=== PATIENT | female | born 1950 | race African-American/Black ===

== ENCOUNTER 2016-08-18 21:41 | Emergency (ER) | payer MEDICARE, MEDICAID ==
[2015-10-04 12:36] VITALS: BMI 25.3
[~2016-08-18 21:41] MED LIST: COMBIGAN OPHT DR5 ML EACH EYE; HUMULIN R100 U/ML SC; LANTUS SOL100 UNIT/1 SC; NAPROSYN250 MG PO; NORCO 10/325 TA1 TA1 PO; NORVIR100 MG PO; PEGASYS SQ; PREZISTA; SOVALDI400 MG PO; STRIBILD TABLE1 EACH PO; TRAVATAN Z2.5 ML EACH EYE; TRUVADA 200 MG1 EACH PO; VYVANSE20 MG PO; ZESTRIL20 MG PO
[2016-08-18 23:34] LABS: BASOPHILS 0.2 % (0.0-2.0); EOSINOPHILS 0.3 % (0-7); HEMATOCRIT 36.6 % (36.0-48.0); HEMOGLOBIN 11.4 g/dL (12-16); IMMATURE GRANULOCYTES 0.3 % (0-5); LYMPHOCYTES 22.7 % (15-50); MCH 24.1 pg (26.0-34.0); MCHC 31.1 g/dL (31.0-37.0); MCV 77.4 fL (80.0-100.0); MEAN PLATELET VOLUME 11.1 fL (7.4-10.4); MONOCYTES 8.1 % (2-11); NEUTROPHILS 68.4 % (40-80); PLATELET COUNT 163 10x3/uL (130-400); RBC 4.73 10x6/uL (4.00-5.40); RDW 17.4 % (11.5-14.5); WBC 13.3 10x3/uL (4.8-10.8)
[2016-08-18 23:45] LABS: ALBUMIN 3.3 g/dL (3.4-5.0); ANION GAP 12.6 mmol/L (8-16); BILIRUBIN - TOTAL 1.1 mg/dL (0.2-1.3); CALCIUM 8.9 mg/dL (8.5-10.1); CARBON DIOXIDE 26.5 mmol/L (21.0-32.0); CREATININE - SERUM 0.9 mg/dL (0.6-1.3); POTASSIUM - SERUM 4.1 mmol/L (3.5-5.1); PROTEIN - SERUM 8.4 g/dL (6.4-8.2)
[2016-08-19 00:28] LABS: APPEARANCE CLOUDY (CLEAR); COLOR YELLOW (YELLOW); LEUKOCYTE ESTERASE 2+ (NEGATIVE); NITRITE NEGATIVE (NEGATIVE); PROTEIN TRACE mg/dL (NEGATIVE); SPECIFIC GRAVITY 1.015 (1.005-1.020)
[2016-08-19 00:29] LABS: BACTERIA MODERATE /hpf (NONE SEEN); BILIRUBIN NEGATIVE (NEGATIVE); GLUCOSE NEGATIVE (NEGATIVE); KETONE NEGATIVE (NEGATIVE); RED CELLS - URINE 0-5 /hpf (0-5); WHITE CELLS - URINE 25-50 /hpf (0-5)
== END 2016-08-19 01:48 | disposition home or self-care (01) ==
LOC: D.ER 21:41
PROVIDERS: Physician Assistant
DX: N39.0 Urinary tract infection, site not specified (principal); D64.9 Anemia, unspecified; B19.20 Unspecified viral hepatitis C without hepatic coma; B20 Human immunodeficiency virus [HIV] disease; E11.9 Type 2 diabetes mellitus without complications; D69.6 Thrombocytopenia, unspecified

== ENCOUNTER 2017-06-22 21:04 | Emergency (ER) | payer MEDICARE, MEDICAID ==
[2015-10-04 12:36] VITALS: BMI 25.3
[2017-06-22 21:51] LABS: BASOPHILS 0.2 % (0-2); EOSINOPHILS 0.3 % (0-7); HEMATOCRIT 31.2 % (36.0-48.0); HEMOGLOBIN 9.6 g/dL (12-16); IMMATURE GRANULOCYTES 0.1 % (0-5); LYMPHOCYTES 23.8 % (15-50); MCHC 30.8 g/dL (31.0-37.0); MEAN PLATELET VOLUME 10.1 fL (7.4-10.4); MONOCYTES 11.2 % (2-11); NEUTROPHILS 64.4 % (40-80); PLATELET COUNT 147 10x3/uL (130-400); RDW 18.9 % (11.5-14.5); WBC 9.7 10x3/uL (4.8-10.8)
[2017-06-22 21:58] LABS: APPEARANCE CLEAR (CLEAR); BILIRUBIN NEGATIVE (NEGATIVE); COLOR YELLOW (YELLOW); GLUCOSE NEGATIVE (NEGATIVE); KETONE NEGATIVE (NEGATIVE); NITRITE NEGATIVE (NEGATIVE); PROTEIN TRACE mg/dL (NEGATIVE)
[2017-06-22 22:01] LABS: EPITHELIAL CELLS 0-5 /hpf (0-5); RED CELLS - URINE 0-5 /hpf (0-5)
[2017-06-22 22:02] LABS: BACTERIA FEW /hpf (NONE SEEN)
[2017-06-22 22:05] LABS: UDS - AMPHET NEGATIVE QUAL (NEGATIVE); UDS - BARB NEGATIVE QUAL (NEGATIVE); UDS - BENZO NEGATIVE QUAL (NEGATIVE); UDS - COCAINE NEGATIVE QUAL (NEGATIVE); UDS - OPIATE NEGATIVE QUAL (NEGATIVE); UDS - PCP NEGATIVE QUAL (NEGATIVE); UDS - THC NEGATIVE QUAL (NEGATIVE)
[2017-06-22 22:06] LABS: ALBUMIN 2.5 g/dL (3.4-5.0); ANION GAP 11.4 mmol/L (8-16); BILIRUBIN - TOTAL 0.48 mg/dL (0.2-1.3); CARBON DIOXIDE 26.6 mmol/L (21.0-32.0); CREATININE - SERUM 1.1 mg/dL (0.6-1.3); PROTEIN - SERUM 9.1 g/dL (6.4-8.2)
== END 2017-06-22 22:45 | disposition home or self-care (01) ==
LOC: D.ER 21:04
PROVIDERS: Nurse Practitioner Family
DX: N39.0 Urinary tract infection, site not specified (principal); M79.672 Pain in left foot; M79.671 Pain in right foot; B19.20 Unspecified viral hepatitis C without hepatic coma; B20 Human immunodeficiency virus [HIV] disease; E11.9 Type 2 diabetes mellitus without complications

== ENCOUNTER 2017-06-26 17:56 | Inpatient (IN) | payer MEDICARE, MEDICAID ==
[~2017-06-26] VITALS: Ht 167.6 cm; Wt 77.0 kg
[2017-06-26 18:54] LABS: BASOPHILS 0.1 % (0-2); EOSINOPHILS 0.6 % (0-7); HEMATOCRIT 31.8 % (36.0-48.0); HEMOGLOBIN 9.9 g/dL (12-16); IMMATURE GRANULOCYTES 0.4 % (0-5); LYMPHOCYTES 31.1 % (15-50); MCH 23.6 pg (26.0-34.0); MCHC 31.1 g/dL (31.0-37.0); MCV 75.9 fL (80.0-100.0); MEAN PLATELET VOLUME 10.3 fL (7.4-10.4); MONOCYTES 10.1 % (2-11); NEUTROPHILS 57.7 % (40-80); PLATELET COUNT 175 10x3/uL (130-400); RBC 4.19 10x6/uL (4.00-5.40)
[2017-06-26 18:55] LABS: APPEARANCE HAZY (CLEAR); BILIRUBIN NEGATIVE (NEGATIVE); COLOR DK YELLOW (YELLOW); GLUCOSE NEGATIVE (NEGATIVE); KETONE NEGATIVE (NEGATIVE); NITRITE NEGATIVE (NEGATIVE); PROTEIN TRACE mg/dL (NEGATIVE); RED CELLS - URINE 0-5 /hpf (0-5); WHITE CELLS - URINE 0-5 /hpf (0-5)
[2017-06-26 19:31] LABS: ALBUMIN 2.6 g/dL (3.4-5.0); ANION GAP 12.7 mmol/L (8-16); BILIRUBIN - TOTAL 0.48 mg/dL (0.2-1.3); CALCIUM 7.8 mg/dL (8.5-10.1); CARBON DIOXIDE 23.1 mmol/L (21.0-32.0); CREATININE - SERUM 0.9 mg/dL (0.6-1.3); POTASSIUM - SERUM 3.8 mmol/L (3.5-5.1); PROTEIN - SERUM 9.1 g/dL (6.4-8.2)
--- NOTE | 2017-06-26 22:16 | NUR ---
RECIEVED PT TO ROOM 2238 FROM ER AWAKE AND ALERT ORINETED X 3 ROOM AIR O2 SAT 100 % HAS HISTORY OF HIV AND CURRENT DX PNEUMONIA
--- NOTE | 2017-06-26 23:00 | NUR ---
PT HAS B/P 78/50 PT REPOSITIONED WITH ELEVATED FEET WILL MONITOR. OTHER VS WNL PT AWAKE AND ALERT
--- NOTE | 2017-06-26 23:58 | NUR ---
PT HAS B/P 76/40 BOLUS GIVEN PER STANDING ORDER.
[2017-06-27] VITALS (20 sets, daily range): BP systolic 75–128; BP diastolic 53–90; Ht 167.6 cm; Wt 77.0 kg
[2017-06-27] MEDS ORDERED: MAVYRET (01:26)
[2017-06-27] MEDS ORDERED: ALPHAGAN 0.2%5 ML EACH EYE (01:26)
[2017-06-27] MEDS ORDERED: PROMETHAZINE W473 M1 PO (01:27)
--- NOTE | 2017-06-27 01:30 | NUR ---
RAPID RESPONSE TEAM IN PLACE PT WITH ORDERS PER DR GANDHI TO TRANSFER TO ICU MOVED PER ICU STAFF
--- NOTE | 2017-06-27 01:40 | NUR ---
PT ARRIVED ON UNIT VIA BED, HOOKED TO MONITORS, PT ALERT AND ORIENTED, ON RA WITH 97% O2 SAT. LUNGS CLEAR IN ALL LOBES, S1S2, CM-NSR, PATENT LEFT FA PIV...SEE IV FLOW SHEET, ABDOMEN IS SOFT AND ROUND WITH ACTIVE BS, ALL PPP, VSS, CALL LIGHT IN REACH
[2017-06-27 02:16] LABS: BASOPHILS 0.1 % (0-2); EOSINOPHILS 0.1 % (0-7); HEMATOCRIT 28.5 % (36.0-48.0); IMMATURE GRANULOCYTES 1.5 % (0-5); LYMPHOCYTES 11.7 % (15-50); MCH 24.1 pg (26.0-34.0); MCHC 31.6 g/dL (31.0-37.0); MCV 76.4 fL (80.0-100.0); MEAN PLATELET VOLUME 10.4 fL (7.4-10.4); NEUTROPHILS 75.6 % (40-80); PLATELET COUNT 150 10x3/uL (130-400); RBC 3.73 10x6/uL (4.00-5.40)
[2017-06-27 02:19] LABS: WBC 14.3 10x3/uL (4.8-10.8)
[2017-06-27 02:31] LABS: ALKALINE PHOSPHATASE 94 U/L (46-116); BILIRUBIN - TOTAL 0.66 mg/dL (0.2-1.3); CALCIUM 7.3 mg/dL (8.5-10.1); CARBON DIOXIDE 23.2 mmol/L (21.0-32.0); CHLORIDE - SERUM 108 mmol/L (98-107); GLUCOSE 126 mg/dL (74-106); PROTEIN - SERUM 7.5 g/dL (6.4-8.2); SODIUM 138 mmol/L (136-145)
[2017-06-27 02:35] LABS: CALC OSMOLALITY 279 mosm/kg (275-300); CREATININE - SERUM 1.8 mg/dL (0.6-1.3); UREA NITROGEN 19 mg/dL (7-18); eGFR NON AFRICAN AMERICAN 30 mL/min (90-120)
[2017-06-27 02:36] LABS: ALT (SGPT) 20 U/L (10-68); POTASSIUM - SERUM 2.9 mmol/L (3.5-5.1); TROPONIN-I < 0.017 ng/mL (0.000-0.060)
--- NOTE | 2017-06-27 03:30 | NUR ---
PT RESTING AT THIS TIME, NO NEEDS NOTED, WILL CON'T TO MONITOR
--- NOTE | 2017-06-27 05:00 | NUR ---
NO NEEDS NOTED AT THIS TIME, WILL CON'T TO MONITOR
--- NOTE | 2017-06-27 07:00 | NUR ---
PT REPORT REC'D, PT CARE ASSUMED, PT AAOX4 SITTING UP IN BED, DENIES ANY PAIN. VSS, 2LNC. LEFT FOREARM PIV WITH FLUIDS INFUSING, SEE FLOW SHEET. SHIFT ASSESSMENT COMPLETED, SEE FLOW SHEET. ROOM FREE OF CLUTTER, CALL LIGHT IN REACH, BED ALARM ACTIVE, WILL CONTINUE TO MONITOR PT.
--- NOTE | 2017-06-27 08:38 | NUR ---
RETURNING PAGE, INFORMED OF CONSULT, "I WILL SEE HER IN A LITTLE BIT."
--- NOTE | 2017-06-27 08:39 | NUR ---
PAGED ROSALES CLARK APN TO ASK ABOUT PTS HEP C AND HIV MEDS REPORTED TO BE TAKEN WITH MEALS, YVONNE AND NEMO, "SEE WHAT DOCTOR IS MANAGING HER HIV AND HEP C, AND LET DR. WILCOX KNOW." WILL CONTINUE TO MONITOR PT.
--- NOTE | 2017-06-27 09:02 | NUR ---
PT FAMILY AT THE BEDSIDE, ALL QUESTIONS ANSWERED, VSS, WILL CONTINUE TO MONTIOR PT.
--- NOTE | 2017-06-27 10:30 | NUR ---
LEFT FOREARM PIV INIFILTRATED, UNABLE TO GET IV, DR. GANDHI AWARE, WILL CONSULT FOR MIDLINE IV
--- NOTE | 2017-06-27 11:00 | NUR ---
DR. GANDHI AT THE BEDSIDE
--- NOTE | 2017-06-27 11:00 | NUR ---
ASSISTED PT FROM BED TO BEDSIDE COMMODE, PT TOLERATED WELL, REASSESSMENT COMPLETED, SEE FLOW SHEET. ROOM FREE OF CLUTTER, CALL LIGHT IN REACH, BED ALARM ACTIVE, WILL CONTINUE TO MONITOR PT.
--- NOTE | 2017-06-27 11:29 | NUR ---
DR. WILCOX AT THE BEDSIDE.
[2017-06-27] MEDS ORDERED: STRIBILD TABLE1 EACH PO (11:57)
--- NOTE | 2017-06-27 13:43 | NUR ---
SPOKE WITH JOB DAVILA RN TO INFORM OF CONSULT FOR MIDLINE PLACEMENT.
--- NOTE | 2017-06-27 14:21 | NUR ---
PT TRANSFERRED VIA BED TO CT.
--- NOTE | 2017-06-27 14:31 | NUR ---
PT RETURNED TO ROOM FROM CT.
--- NOTE | 2017-06-27 15:00 | NUR ---
PT SITTING UP IN BED, DENIES ANY PAIN UPON ASSESSMENT, REASSESSMENT COMPLETED, SEE FLOW SHEET. ROOM FREE OF CLUTTER, CALL LIGHT IN REACH, VSS, WILL CONTINUE TO MONITOR PT.
--- NOTE | 2017-06-27 16:50 | NUR ---
SPOKE WITH PAYAM CHAPMAN TO TRANSFER PT IF OKAY WITH DR. GUARDADO SPOKE WITH PAYAM SAHU TO TRANSFER PT.
--- NOTE | 2017-06-27 18:00 | NUR ---
PT HAD SM BOWEL MOVEMENT, COMPLETE LINEN CHANGE, PT TOLERATED WELL, WILL CONTINUE TO MONITOR PT.
--- NOTE | 2017-06-27 19:15 | NUR ---
ASSESSMENT COMPLETE. S1S2. SINUS TACHYCARDIA SHOWING ON MONITOR. RR UNLABORED; DENIES SOB. DIMINISHED BILATERALLY IN MID AND LOWER LOBES. AAO. 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 RADIAL AND PEDAL PULSES PALPATED. RT UPPER ARM MIDLINE CATH; PATENT. ON ROOM AIR; O2 SAT 99%. SLIGHT WEAKNESS NOTED TO LOWER EXTREMITIES.
--- NOTE | 2017-06-27 20:29 | NUR ---
PT HAD MEDIUM LOOSE DIARRHEA BM. PT CLEANED; NEW BRIEF PROVIDED. LINENS CHANGED.
--- NOTE | 2017-06-27 22:03 | NUR ---
PT ARRIVED VIA VC FROM ICU ACCOMPANIED BY ICU NURSE. PT IS STABLE AND HAS NO O2. RIGHT UPPER ARM MIDLINE WITH NS RUNNING AT 150ML/HR. PT DENIES ANY FURTHER NEEDS AT THIS TIME. BED IN LOWEST POSITION AND CALL LIGHT WITHIN REACH.
[2017-06-28] VITALS: BP 106/64
[2017-06-28 04:00] VITALS: BP 111/72
--- NOTE | 2017-06-28 05:02 | NUR ---
OUTSOLE ROUNDER AT BEDSIDE TO OBTAIN VITALS, CALL LIGHT IN REACH. WILL CONTINUE WITH PLAN OF CARE.
[2017-06-28 06:02] LABS: WBC 21.3 10x3/uL (4.8-10.8)
[2017-06-28 06:07] LABS: HEMATOCRIT 27.1 % (36.0-48.0); HEMOGLOBIN 8.7 g/dL (12-16); MCH 24.4 pg (26.0-34.0); MCHC 32.1 g/dL (31.0-37.0); MCV 75.9 fL (80.0-100.0); MEAN PLATELET VOLUME 11.1 fL (7.4-10.4); PLATELET COUNT 137 10x3/uL (130-400); RBC 3.57 10x6/uL (4.00-5.40); RDW 19.6 % (11.5-14.5)
[2017-06-28 06:30] LABS: ALBUMIN 1.8 g/dL (3.4-5.0); ANION GAP 12.1 mmol/L (8-16); BILIRUBIN - TOTAL 0.63 mg/dL (0.2-1.3); CALCIUM 7.6 mg/dL (8.5-10.1); CREATININE - SERUM 1.6 mg/dL (0.6-1.3); MAGNESIUM - SERUM 1.4 mg/dL (1.8-2.4); PHOSPHOROUS 3.2 mg/dL (2.5-4.9); POTASSIUM - SERUM 4.1 mmol/L (3.5-5.1); PROTEIN - SERUM 7.3 g/dL (6.4-8.2)
[2017-06-28 07:09] LABS: BASOPHILS 1 % (0-2); EOSINOPHILS 1 % (0-7); HYPOCHROMASIA OCC; LYMPHOCYTES 9 % (15-50); MONOCYTES 7 % (2-11); NEUTROPHILS 61 % (40-80); PLATELET ESTIMATE NORMAL
--- NOTE | 2017-06-28 07:40 | NUR ---
PATIENT IN BED RESTING AT THIS TIME. NO SIGNS OR SYMPTOMS OF DISTRESS NOTED. CALL LIGHT AND WATER WITHIN REACH.
[2017-06-28 09:15] VITALS: BP 115/73
[2017-06-28 11:53] VITALS: BP 110/70
--- NOTE | 2017-06-28 13:40 | NUR ---
PT C/O NAUSEA AND HAS THROWN UP. DISCUSSED WITH PRIMARY NURSE YOU. NO FURTHER NEEDS.
[2017-06-28 16:53] VITALS: BP 110/78
--- NOTE | 2017-06-28 19:39 | NUR ---
PT IN BED RESTING. AROUSES TO VOICE DENIES NEEDS AT THIS TIME.
[2017-06-28 22:42] VITALS: BP 113/72
--- NOTE | 2017-06-29 00:15 | NUR ---
PT IN BED RESTING EVEN AND UNLABORED RESPIRATIONS NOTED WILL CONTINUE TO MONITOR
--- NOTE | 2017-06-29 02:00 | NUR ---
LYING IN BED WITH EYES CLOSED, CALL LIGHT IN REACH. WILL CONTINUE WITH PLAN OF CARE.
[2017-06-29 02:22] LABS: MAGNESIUM - SERUM 1.6 mg/dL (1.8-2.4); VANCOMYCIN - TROUGH 6.2 ug/mL (10.0-20.0)
[2017-06-29 04:05] LABS: BASOPHILS 0.1 % (0-2); EOSINOPHILS 0.3 % (0-7); HEMOGLOBIN 8.4 g/dL (12-16); IMMATURE GRANULOCYTES 0.4 % (0-5); LYMPHOCYTES 14.1 % (15-50); MCH 23.5 pg (26.0-34.0); MCHC 31.1 g/dL (31.0-37.0); MCV 75.6 fL (80.0-100.0); MEAN PLATELET VOLUME 11.1 fL (7.4-10.4); MONOCYTES 7.7 % (2-11); NEUTROPHILS 77.4 % (40-80); PLATELET COUNT 164 10x3/uL (130-400); RBC 3.57 10x6/uL (4.00-5.40); RDW 19.6 % (11.5-14.5); WBC 19.2 10x3/uL (4.8-10.8)
[2017-06-29 05:19] VITALS: BP 113/71
--- NOTE | 2017-06-29 05:58 | NUR ---
PT IN BED RESTING. DENIES NEEDS AT THIS TIME.
--- NOTE | 2017-06-29 07:54 | NUR ---
Vancomycin trough 6.2, increased to 1.25gm and started at 1700 today. Ordered trough 12-10 at 1530.
--- NOTE | 2017-06-29 07:58 | NUR ---
AM ROUNDS - PT IN BED AT THIS TIME AND AWAKE. PT IN ON ROOM AIR. RIGHT ARM MIDLINE, NS AT 150CC/HR. BED AT LOWEST POSITION. CALL NYE IN USE/REACH. SIDE RAILS UP X2. WILL CONTINUE TO MONITOR
[2017-06-29 10:27] VITALS: BP 130/80
[2017-06-29 11:56] VITALS: BP 115/78
--- NOTE | 2017-06-29 12:46 | NUR ---
Nutrition Follow Up: Pt is eating 100% meal avg on a diabetic diet. +BM 06/29/17. Meds and labs reviewed. Rec continue current diet. RD following.
--- NOTE | 2017-06-29 13:55 | NUR ---
REHAB PRESCREENING Rehab referral received and chart reviewed. Ms. Carrera has [employer] as her insurance provider. [employer] requires a pre-authorization to approve rehab benefit. Pre-auth requires PT and OT evaluations. Rehab will continue to follow for these evaluations and will begin pre-auth after they are completed. Thank you for this referral! Rosio Lopez, MANAGER CORPORATE Rehab Splitting Machine Feeder
[2017-06-29 15:53] VITALS: BP 109/65
--- NOTE | 2017-06-29 21:20 | NUR ---
HS MEDS GIVEN WITH FRESH ICE WATER, BS 94, NO COVERAGE PER S/S. OFFERED PT PAIN PILL, PT DECLINED AT THIS TIME AND STATED THAT SHE WILL CALL WHEN READY FOR PAIN MEDS.
[2017-06-29 21:46] VITALS: BP 133/76
--- NOTE | 2017-06-29 22:57 | NUR ---
NORCO 1 TAB GIVEN FOR C/O.
--- NOTE | 2017-06-30 00:21 | NUR ---
HELICOPTER OFFICER AT BED SIDE TO OBTAIN VITALS, NO S/S DISTRESS NOTED.
[2017-06-30 01:22] VITALS: BP 96/65
--- NOTE | 2017-06-30 02:49 | NUR ---
PT RESTING COMFORTABLY, NO NEEDS. CONTINUE TO MONITOR CLOSELY.
--- NOTE | 2017-06-30 03:59 | NUR ---
SPEECH LANGUAGE PATHOLOGY ASSISTANT AT BED SIDE, BATH AND LINEN CHANGE COMPLETE.
[2017-06-30 04:54] VITALS: BP 102/62
[2017-06-30 07:07] LABS: BASOPHILS 0.2 % (0-2); HEMATOCRIT 27.1 % (36.0-48.0); HEMOGLOBIN 8.5 g/dL (12-16); IMMATURE GRANULOCYTES 0.3 % (0-5); LYMPHOCYTES 20.5 % (15-50); MCH 23.7 pg (26.0-34.0); MCHC 31.4 g/dL (31.0-37.0); MCV 75.5 fL (80.0-100.0); MEAN PLATELET VOLUME 10.1 fL (7.4-10.4); MONOCYTES 7.7 % (2-11); NEUTROPHILS 69.3 % (40-80); PLATELET COUNT 155 10x3/uL (130-400); RBC 3.59 10x6/uL (4.00-5.40); RDW 19.9 % (11.5-14.5)
[2017-06-30 07:08] LABS: WBC 9.2 10x3/uL (4.8-10.8)
--- NOTE | 2017-06-30 07:25 | NUR ---
REPORT RECEIVED ON PATIENT. MORNING ROUNDS MADE. ASSISTED PATIENT TO THE RESTROOM, SHE AMBULATES WITH VERY LITTLE ASSISTANCE NEEDED. DENIES ANY NEEDS AT THIS TIME. WILL CONTINUE TO MONITOR. CPOC.
[2017-06-30 07:29] LABS: ANION GAP 10.6 mmol/L (8-16); CALCIUM 7.6 mg/dL (8.5-10.1); POTASSIUM - SERUM 3.6 mmol/L (3.5-5.1)
[2017-06-30 07:57] VITALS: BP 145/79
--- NOTE | 2017-06-30 09:16 | NUR ---
PATIENT SITTING UP IN BED WITH FAMILY AT BEDSIDE. CALLED PHARMACY TO BRING FLONASE UP FOR PATIENT. ALL OTHER MORNING MEDS GIVEN. WILL GIVE FLONASE WHEN RECEIVED. DENIES ANY NEEDS AT THIS TIME. CPOC.
[2017-06-30 11:44] VITALS: BP 148/82
--- NOTE | 2017-06-30 13:26 | NUR ---
PATIENT RESTING, DENIES ANY NEEDS. OC BED LOW AND LOCKED. CALL LIGHT IN REACH
--- NOTE | 2017-06-30 14:49 | NUR ---
PATIENT LAYING IN BED, TALKING ON PHONE, FAMILY AT BEDSIDE. DENIES ANY NEEDS AT THIS TIME. SHERRILL CABA CAME IN AND SPOKE TO PATIENT, TOLD HER SHE NEEDED TO GO TO REHAB BEFORE SHE WENT HOME TO BUILD UP HER STRENGTH. AFTER ROSALES LEFT, PATIENT HAD QUITE A FEW QUESTIONS. ALL QUESTIONS ANSWERED. WILL CONTINUE TO MONITOR. CPOC.
[2017-06-30 15:08] VITALS: BP 138/80
--- NOTE | 2017-06-30 18:07 | NUR ---
EVENING ROUNDS MADE. INFORMED PATIENT I WOULD BE LEAVING SOON. ASSISTED TO AND FROM RESTROOM. DENIES ANY NEEDS AT THIS TIME. VS STABLE TODAY. CPOC.
[2017-06-30 21:02] VITALS: BP 116/72
--- NOTE | 2017-06-30 22:19 | NUR ---
INITIALROUNDS COMPETEDA T 1920 HRS. PT ASSISTED TO BR. VOIDED LARGE AMOUNT OF URINE. ASSISTED BACK TO BED. GAIT RELATIVELY STEADY. MEASURING HAT PLACED IN COMMODE AT 2000 HRS. ASSESSMENT COMPLETED AT THAT TIME. SR HR 67 PER CM. VSS. IV MIDLINE TO RAC WITH NS AT 150CC/HR. IV PATENT. LUNGS DIMINISHED IN BASES BILAT. ALERT AND ORIENTED TO PERSON, PLACE AND TIME. PM FSBS 15. NO COVERAGE NEEDED. PM MEDS GIVEN. PT CURRENTLY TEXTING ON PHONE. WILL CONTINUE TO MONITOR. SR UP X2, CALL LIGHT WITHIN REACH.
--- NOTE | 2017-06-30 23:52 | NUR ---
PT RESTING WITH EYES CLOSED. RESP EVEN AND REGULAR. SR UP X2, CALL LIGHT WITHIN REACH.
[2017-07-01 00:19] VITALS: BP 117/73
--- NOTE | 2017-07-01 02:16 | NUR ---
PT RESTING WITH EYES CLOSED. RESP EVEN AND REGULAR. SR UP X2, CALL LIGHT WITHIN REACH.
--- NOTE | 2017-07-01 04:45 | NUR ---
PT AWAKE;DENIES ANY DISCOMFORT. WILL CONTINUE TO MONITOR.
[2017-07-01 05:16] VITALS: BP 111/77
--- NOTE | 2017-07-01 06:36 | NUR ---
VSS THROUGHOUT NIGHT. SR PER CM. PT DENIED ANY DISCOMFORT. NEEDS MET; WILL CONTINUE TO MONITOR.
--- NOTE | 2017-07-01 07:51 | NUR ---
RECEIVED REPORT ON PATIENT. MORNING ROUNDS MADE. PATIENT LAYING IN BED WITH EYES CLOSED. NAD NOTED. CHEST RISES AND FALLS EQUALLY BILAT. BED IN LOWEST POSTITION, SIDE RAILS UP X2, CALL LIGHT IN REACH. WILL CONTINUE TO MONITOR. CPOC.
[2017-07-01 08:44] LABS: BASOPHILS 0.2 % (0-2); EOSINOPHILS 2.8 % (0-7); HEMATOCRIT 28.4 % (36.0-48.0); HEMOGLOBIN 9.1 g/dL (12-16); IMMATURE GRANULOCYTES 0.6 % (0-5); LYMPHOCYTES 31.6 % (15-50); MCH 23.9 pg (26.0-34.0); MCV 74.7 fL (80.0-100.0); MEAN PLATELET VOLUME 9.5 fL (7.4-10.4); MONOCYTES 9.4 % (2-11); NEUTROPHILS 55.4 % (40-80); PLATELET COUNT 160 10x3/uL (130-400); WBC 5.3 10x3/uL (4.8-10.8)
[2017-07-01 08:48] LABS: ANION GAP 11.4 mmol/L (8-16); CALCIUM 7.5 mg/dL (8.5-10.1); CARBON DIOXIDE 23.6 mmol/L (21.0-32.0)
--- NOTE | 2017-07-01 11:17 | NUR ---
PATIENT IS RESTING, DENIES ANY NEEDS. BED LOW AND LOCKED. CPOC
[2017-07-01 11:42] VITALS: BP 139/76
[2017-07-01 16:07] VITALS: BP 108/71
--- NOTE | 2017-07-01 19:21 | NUR ---
EVENING ROUNDS MADE. PATIENT RESTING IN BED. SHE DENIES ANY COMPLAINS OR NEEDS AT THIS TIME. HER BED IS IN LOWEST POSITION & LOCKED, SIDE RAILS UP X2, CALL LIGHT IN REACH. CPOC.
[2017-07-01 20:00] VITALS: BP 118/72
--- NOTE | 2017-07-01 21:48 | NUR ---
INITIAL ROUNDS COMPLTEDA T 1920 HRS. PT DENIED ANY DISCOMFORT. FAMILY AT BEDSIDE. ASSESSMENT COMPLETED AT 1950 HRS. VSS. SR PER CM HR 63. IV TO RAC MIDLINE WITH NS AT 150CC/HR. IV PATENT. LUNGS DIMINISHED IN BASES BILAT. PM FSBS 108. NO COVERAGE NEEDEED. PM SNACK SERVED. PM MEDS GIVEN. PT CURRETNLY CONVERSING ON PHONE. WILL CONTINUE TO MONITOR. SR UP X2, CALL LIGHT WITHIN REACH.
[2017-07-02] VITALS: BP 98/62
--- NOTE | 2017-07-02 00:02 | NUR ---
PT RESTING WITH EYES CLOSED. RESP EVEN AND REGULAR. SR UP X2, CALL LIGHT WITHIN REACH.
--- NOTE | 2017-07-02 02:49 | NUR ---
PT RESTING WITH EYES CLOSED. RESP EVEN AND REGULAR. SR UP X2, CALL LIGHT WITHIN REACH.
[2017-07-02 04:00] VITALS: BP 113/67
--- NOTE | 2017-07-02 04:26 | NUR ---
PT AWAKE; DENIES AN DISCOMFORT. WILL CONTINUE TO MONITOR.
[2017-07-02 06:10] LABS: BASOPHILS 0.2 % (0-2); EOSINOPHILS 3.5 % (0-7); HEMATOCRIT 27.8 % (36.0-48.0); HEMOGLOBIN 8.8 g/dL (12-16); IMMATURE GRANULOCYTES 0.4 % (0-5); LYMPHOCYTES 40.6 % (15-50); MCH 23.8 pg (26.0-34.0); MCHC 31.7 g/dL (31.0-37.0); MCV 75.3 fL (80.0-100.0); MEAN PLATELET VOLUME 10.8 fL (7.4-10.4); MONOCYTES 11.4 % (2-11); NEUTROPHILS 43.9 % (40-80); PLATELET COUNT 178 10x3/uL (130-400); RBC 3.69 10x6/uL (4.00-5.40); RDW 20.4 % (11.5-14.5); WBC 4.6 10x3/uL (4.8-10.8)
--- NOTE | 2017-07-02 06:24 | NUR ---
VSS THROUGHOUT NIGHT. SR PER CM. PT DENIED AN DISCOMFORT. NEEDS MET; WILL CONTINUE TO MONITOR. AM FSBS 79. NO COVERAGE NEEDED.
[2017-07-02 06:34] LABS: ANION GAP 8.4 mmol/L (8-16); CALCIUM 7.5 mg/dL (8.5-10.1); CARBON DIOXIDE 23.1 mmol/L (21.0-32.0); MAGNESIUM - SERUM 1.4 mg/dL (1.8-2.4); PHOSPHOROUS 2.5 mg/dL (2.5-4.9); POTASSIUM - SERUM 3.5 mmol/L (3.5-5.1)
--- NOTE | 2017-07-02 07:15 | NUR ---
RECIEVED REPORT ON PATIENT, PATIENT IS ALERT AND ORIENTED AT THIS TIME. RECIEVING BREATHING TREATMENT. PATIENT HAS A R AC MIDLINE INFUSING WITH NS AT 150ML/HR. PATIENT IS SR ON MONITOR WITH A RATE OF 61. PATIENT DENIES ANY NEEDS OR COMPLAINTS. BED LOW AND LOCKED. CALL LIGHT IN REACH. CPOC
[2017-07-02 08:18] VITALS: BP 128/78
--- NOTE | 2017-07-02 09:14 | NUR ---
PATIENT HAS ZOSYN INFUSING AT THIS TIME, WILL START VANCOMYCIN AFTER COMPLETE. CPOC
--- NOTE | 2017-07-02 09:26 | NUR ---
PATIENT AMBULATING HALLWAY WITH PT AT THIS TIME. CPOC
--- NOTE | 2017-07-02 11:34 | NUR ---
FSBS 93, NO INSULIN REQUIRED. CPOC
[2017-07-02 12:27] VITALS: BP 126/78
--- NOTE | 2017-07-02 14:12 | NUR ---
PATIENT IS RESTING DENIES ANY NEEDS. CPOC
[2017-07-02 16:38] VITALS: BP 136/74
--- NOTE | 2017-07-02 16:45 | NUR ---
FSBS 89, NO INSULIN REQUIRED. PATIENT DENIES ANY NEEDS. CPOC
--- NOTE | 2017-07-02 17:30 | NUR ---
PATIENT EATING DINNER, DENIES ANY NEEDS OR PAIN AT THIS TIME. CPOC
--- NOTE | 2017-07-02 18:23 | NUR ---
ROUNDS MADE, INFORMED PATIENT THE SHIFT WAS ENDING AND ASSEMBLER GOLF WOOD HEAD WAS ABOUT TO START, NEEDS MET. DENIES ANY FURTHER NEEDS. CPOC
[2017-07-02 21:06] VITALS: BP 124/83
--- NOTE | 2017-07-03 00:23 | NUR ---
RESTING WITH EYES CLOSED, RESPERATIONS EVEN, NO S/S DISTRESS NOTED.
--- NOTE | 2017-07-03 00:38 | NUR ---
ZOFRAN 4 MG GIVEN IV FOR C/O NAUSEA.
[2017-07-03 00:58] VITALS: BP 109/66
--- NOTE | 2017-07-03 06:23 | NUR ---
DEPARTMENT OF MATHEMATICS CHAIR AT BED SIDE, BATH COMPLETE, AM BS 80.
[2017-07-03 06:32] VITALS: BP 123/69
--- NOTE | 2017-07-03 07:00 | NUR ---
RESTING IN BED WITH EYES CLOSED. EASILY AROUSED. RESP EVEN AND UNLABORD. RECEIVING EXTENDED ZOSYN AT THIS TIME. DENIES NEEDS. NO DISTRESS. CALL LIGHT WITHIN REACH.
[2017-07-03 08:22] VITALS: BP 123/70
--- NOTE | 2017-07-03 09:23 | NUR ---
VANC AND ZOSYN ARE NOT COMPATIBLE. PATIENT CURRENTLY STILL HAVE EXTENDED ZOSYN INFUSING. NOTIFIED PHARMACY AND VANC HAS BEEN RETIMED.
--- NOTE | 2017-07-03 10:36 | NUR ---
Patient Name: CARLOS ALBERTO MOORE Admission Status: ER Accout number: [id number] Admission Date: 06-26-2017 : 1950 Admission Diagnosis: Attending: AUDREY WILCOX Current LOS: 7 Anticipated DC Date: 07-03-2017 Planned Disposition: Inpatient Rehab Primary Insurance: [employer] ADV PLANNED EXTERNAL PROVIDER: [facility] INPATIENT [facility] Discharge Planning Comments: * Is the patient Alert and Oriented? Yes 0 * How many steps to enter\exit or inside your home? 1 0 * PCP DR. ALEX BOYKIN FERDINAND 0 * Pharmacy [facility]. 0 * Preadmission Environment Home with Family 0 * ADLs Independent 0 * Equipment [employer] Glucometer Rolling Walker Shower Chair 0 * Other Equipment [employer] - MEDICAL EQUIPMENT PROVIDER 0 * List name and contact numbers for known caregivers / representatives who currently or will assist patient after discharge: GE NUNEZ, MOTHER, 0 * Community resources currently utilized None 0 * Please name any agencies selected above. NONE 0 * Additional services required to return to the preadmission environment? Yes * Can the patient safely return to the preadmission environment? Yes 0 * Has this patient been hospitalized within the prior 30 days at any hospital? No 0 LATE ENTRY FROM 06-29-17, 1700 HOURS: CM RECEIVED INPATIENT REHAB PRESCREEN ORDER, SPOKE WITH PT IN ROOM WHO IS IN AGREEMENT WITH INPATIENT REHAB AT [place] IF COVERED BY INSURANCE. CM SPOKE TO ELISE OF [facility] INPATIENT [facility] WHO ADVISED THAT PT REQUIRES PT AND OT EVALUATION FOR INSURANCE CONSIDERATION. ON 07-03-17, AT ABOUT 0915 HOURS, CM MET WITH PT IN ROOM WHO REPORTS THAT PHYSICAL THERAPIST HAS BEEN BY BUT SHE DOES NOT THINK OCCUPATIONAL THERAPY HAS BEEN BY YET. CM DISCUSSED DISCHARGE PLANNING AND NEEDS. PT REPORTS LIVING AT HOME INDEPENDENTLY, PT HAS TWO TEEN GRANDCHILDREN IN THE HOME; PT REPORTS SHE OCCAISIONALLY NEEDS HELP WITH TOILETING AND BATHING - THE GRANDCHILDREN HELP PT NEEDED. PT HAS CANE, GLUCOMETER, ROLLIGN WALKER AND SHOWER CHAIR FROM [employer]. PT HAS NO OUTSIDE SERVICES ASSISTING IN THE HOME. CM DISCUSSED AVAILABILITY OF HOME HEALTH, REHAB SERVICES AND MEDICAL EQUIPMENT. PT STILL IN AGREEMENT WITH REHAB AT [place] IF HER INSURANCE WILL PAY FOR IT. PT IS UNSURE IF SHE WOULD CONSIDER A SHELTER FACILITY OR GO HOME WITH HOME HEALTH IF DECLINED FOR INPATIENT REHAB. PT REPORTS HER MOTHER OR SISTER WILL PICK HER UP FOR DISCHARGE HOME. IMPORTANT MESSAGE FROM MEDICARE PROVIDED AND EXPLAINED. CM CALLED PHYSICAL THERAPY DEPARTMENT, SPOKE TO BIANCA WHO REPORTS THAT THE OCCUPATIONAL THERAPIST IS HERE TODAY AND BIANCA WILL INFORM THE THERAPIST OF THE PENDING ORDER FOR EVALUATION. [facility] TO COMPLETE INPATIENT REHAB PRESCREEN AND SUBMIT FOR INSURANCE AUTHORIZATION IF APPLICABLE ONCE THE OT EVALUATION IS COMPLETED AND DOCUMENTED. Tire Worker: Alex Aquino
--- NOTE | 2017-07-03 11:15 | NUR ---
FSBS 90. NO INSULIN COVERAGE PER SLIDING SCALE.
[2017-07-03 12:37] VITALS: BP 128/79
--- NOTE | 2017-07-03 14:55 | NUR ---
Rehab Note- Faxed OT eval to clinical reviewer, Chelita Savage with [facility]. Have also attempted to call and have left 2 voicemail messages with no return call back. Will continue to make contact with Chelita for possible PreAuth approval for an acute inpatient rehab stay at [phone]. Will continue to follow. Thank you for this referral! Joyce Sellers RN Clinical Liaison, [facility] Rehab
--- NOTE | 2017-07-03 16:18 | NUR ---
FSBS 97. NO INSULIN COVERAGE REQUIRED PER SLIDING SCALE.
[2017-07-03 16:28] VITALS: BP 116/72
--- NOTE | 2017-07-03 16:45 | NUR ---
OT NOTE: PT COMPLETED BUE AROM AXS AT EOB WITH SBA. PT COMPLETED BED MOB WITH SBA. PT COMPLETED GROOMING TASK WITH SET UP. PT COMPLETED DYNAMIC SITTING BALANCE WITH SBA. THANK YOU, KRISTIAN LOPEZ/Vanna
[2017-07-03 21:26] VITALS: BP 116/69
--- NOTE | 2017-07-03 21:56 | NUR ---
HS MEDS GIVEN WITH FRESH ICE WATER. NORCO 2 TABS GIVEN FOR C/O PAIN, FAMILY AT BED SIDE, BED LOW, CL IN REACH.
[2017-07-04] VITALS: BP 110/60
--- NOTE | 2017-07-04 03:21 | NUR ---
PT IN BED RESTING QUIETLY. BREATHING EVEN AND UNLABORED. BED IN LOW POSITION, CALL LIGHT WITHIN REACH. WILL CTM.
--- NOTE | 2017-07-04 05:18 | NUR ---
RESTING WITH EYES CLOSED, RESPERATIONS EVEN, NO S/S DISTRESS NOTED.
[2017-07-04 06:27] VITALS: BP 125/71
[2017-07-04 06:45] LABS: BASOPHILS 0.2 % (0-2); EOSINOPHILS 3.2 % (0-7); HEMATOCRIT 25.3 % (36.0-48.0); HEMOGLOBIN 8.1 g/dL (12-16); IMMATURE GRANULOCYTES 0.5 % (0-5); LYMPHOCYTES 45.7 % (15-50); MCH 24.2 pg (26.0-34.0); MCV 75.5 fL (80.0-100.0); MEAN PLATELET VOLUME 10.6 fL (7.4-10.4); MONOCYTES 9.2 % (2-11); NEUTROPHILS 41.2 % (40-80); PLATELET COUNT 179 10x3/uL (130-400); RBC 3.35 10x6/uL (4.00-5.40); RDW 20.8 % (11.5-14.5)
[2017-07-04 07:03] LABS: ANION GAP 10.6 mmol/L (8-16); CALCIUM 7.2 mg/dL (8.5-10.1); CARBON DIOXIDE 22.1 mmol/L (21.0-32.0); POTASSIUM - SERUM 3.7 mmol/L (3.5-5.1)
--- NOTE | 2017-07-04 07:15 | NUR ---
REPORT RECEIVED. RR EVEN AND UNLABORED, PT ASLEEP. PLACED NAME ON WHITE BOARD. FALL PRECAUTIONS IN PLACE. WILL CTM.
[2017-07-04 07:31] VITALS: BP 158/86
--- NOTE | 2017-07-04 10:25 | NUR ---
Rehab Note- Phoned Chelita Savage CM with [employer] to f/u on pending PreAuth for acute rehab stay, no answer- left voicemail, awaiting call back. Will continue to follow. Joyce Sellers RN Clinical Liaison, [facility] Rehab
[2017-07-04 11:41] VITALS: BP 123/75
--- NOTE | 2017-07-04 16:36 | NUR ---
Rehab Note- Spoke with Mingo with [facility]. Received [facility]#[id number]. Spoke to MOOSE Palmer- will plan on admit to [facility] Acute Inpatient Rehab 07/05/17. Thank you for this referral! Joyce Sellers RN Clinical Liaison, [facility] Rehab
[2017-07-04 16:37] VITALS: BP 142/83
--- NOTE | 2017-07-04 18:33 | NUR ---
PT RESTING QUIETLY, RR EVEN AND UNLABORED. PT DENIES NEEDS AT THIS TIME. WILL GIVE SHIFT REPORT ON PT CONDTION FOR THE DAY.
--- NOTE | 2017-07-04 20:40 | NUR ---
OT NOTE: PT COMPLETED BED MOB WITH SPV. PT COMPLETED SIT TO STANDS WITH SBA. PT COMPLETED HYGIENE STANDING AT SINK LEVEL WITH SBA. THANK YOU, KRISTIAN LOPEZ/Vanna
--- NOTE | 2017-07-04 20:59 | NUR ---
PT RESTING COMFORTABLY, AWAKE, ALERT, ORIENTED, NO NEEDS AT THIS TIME. CONTINUE TO MONITOR CLOSELY. BED LOW, CALL LIGHT IN REACH, SIDE RAILS X 2, HOB 30 DEGREES.
[2017-07-04 21:03] VITALS: BP 132/73
--- NOTE | 2017-07-05 05:04 | NUR ---
PT AWAKE, ALERT, NO NEEDS AT THIS TIME, CONTINUE TO MONITOR CLOSELY.
[2017-07-05 05:40] VITALS: BP 131/76
[2017-07-05 06:12] LABS: BASOPHILS 0.2 % (0-2); EOSINOPHILS 2.1 % (0-7); HEMATOCRIT 25.6 % (36.0-48.0); HEMOGLOBIN 8.2 g/dL (12-16); IMMATURE GRANULOCYTES 0.4 % (0-5); LYMPHOCYTES 40.5 % (15-50); MCH 24.3 pg (26.0-34.0); MEAN PLATELET VOLUME 9.7 fL (7.4-10.4); NEUTROPHILS 48.8 % (40-80); PLATELET COUNT 174 10x3/uL (130-400); RBC 3.37 10x6/uL (4.00-5.40); RDW 21.2 % (11.5-14.5); WBC 4.7 10x3/uL (4.8-10.8)
[2017-07-05 06:31] LABS: ANION GAP 9.5 mmol/L (8-16); CALCIUM 7.2 mg/dL (8.5-10.1); CARBON DIOXIDE 24.3 mmol/L (21.0-32.0); CREATININE - SERUM 0.9 mg/dL (0.6-1.3); POTASSIUM - SERUM 3.8 mmol/L (3.5-5.1)
--- NOTE | 2017-07-05 07:15 | NUR ---
REPORT RECEIVED. RR EVEN AND UNLABORED, PT DENIES NEEDS AT THIS TIME. WILL CTM.
[2017-07-05 08:34] VITALS: BP 140/70
[2017-07-05 12:25] VITALS: BP 146/78
--- NOTE | 2017-07-05 12:54 | NUR ---
Patient Name: CARLOS ALBERTO MOORE Encounter No: [id number] : 1950 Primary Insurance: [employer] ADV Anticipated DC Date: 07-05-2017 Planned Disposition: Inpatient Rehab External Planned Provider: [facility] INPATIENT REHAB DCP follow-up note: LATE ENTRY FROM 07-04-17: CM SPOKE TO ALYCIA OF INPATIENT REHAB, INSURANCE AUTHORIZATION FOR INPATIENT REHAB RECEIVED, THEY PLAN TO ACCEPT PT TOMORROW, 07-05-17, FOR REHAB. PT NOTIFIED, IN AGREEMENT WITH DISCHARGE TO INPATIENT REHAB. [facility] INPATIENT REHAB TO CONTACT MED 2 NURSE WITH ROOM NUMBER WHEN READY TO ACCEPT PT AND NURSE REPORT. Alex Aquino, CASE MANAGEMENT
--- NOTE | 2017-07-05 13:02 | NUR ---
OT NOTE: PT REPORTED FEELING BETTER TODAY; BED MOB TRAINING WITHOUT ASSIST;TRANSFERS WITH SBA/CGA FEEDING WITH SETUP OF TRAY. GENARO ARREDONDO, OTR/L
[2017-07-05] MEDS ORDERED: BENZONATATE200 MG PO (13:31)
[2017-07-05] MEDS ORDERED: IPRAT-ALBUT 0.5-3 ML UPD (13:31)
[2017-07-05] MEDS ORDERED: PROTONIX40 MG PO (13:32)
[2017-07-05] MEDS ORDERED: MUCINEX DM ER1 EAC1 PO (13:32)
--- NOTE | 2017-07-05 15:45 | NUR ---
PT DISCHARGED. D/C INSTRUCTIONS PROVIDED, PAPER WORKED SIGNED. TELE REMOVED AND RETURNED TO STOCK BROKER. MIDLINE CATHTER REMOVED FROM PTS RIGHT ARM, NO BLEEDING NOTED. DRESSING APPLIED OVER SITE. ASSISTED PT TO GATHER BELONGINGS, CALLED FOR WHEELCHAIR ESCORT. PT WILL BE GOING TO INPATIENT REHAB.
== END 2017-07-05 15:48 | DRG 974 ==
LOC: D.ER 17:56 → D.MS 20:25 → D.M2 20:25 → D.ICU 20:25 → D.M2 06-27 21:57
PROVIDERS: Emergency Medicine; Family Medicine; Internal Medicine Pulmonary Disease; Student in an Organized Health Care Education/Training Program; ADMIT Family Medicine
PROC: 05HB33Z Insertion of Infusion Device into Right Basilic Vein, Percutaneous Approach (ICD-10-PCS; principal; 2017-06-27)
PROC: B54MZZA Ultrasonography of Right Upper Extremity Veins, Guidance (ICD-10-PCS; 2017-06-27)
DX: B20 Human immunodeficiency virus [HIV] disease (principal); J69.0 Pneumonitis due to inhalation of food and vomit; A41.9 Sepsis, unspecified organism; R57.9 Shock, unspecified; J98.11 Atelectasis; J44.0 Chronic obstructive pulmonary disease with (acute) lower respiratory infection; E11.40 Type 2 diabetes mellitus with diabetic neuropathy, unspecified; B18.2 Chronic viral hepatitis C; I10 Essential (primary) hypertension; J20.9 Acute bronchitis, unspecified; E87.6 Hypokalemia; K74.60 Unspecified cirrhosis of liver; H40.9 Unspecified glaucoma; D64.9 Anemia, unspecified; Z87.891 Personal history of nicotine dependence

== ENCOUNTER 2017-07-05 16:22 | Inpatient (IN) | payer MEDICARE, MEDICAID ==
[~2017-07-05] VITALS: Ht 167.6 cm; Wt 77.1 kg
[~2017-07-05 16:22] MED LIST changes: +ALPHAGAN 0.2%5 ML EACH EYE; +BENZONATATE200 MG PO; +IPRAT-ALBUT 0.5-3 ML UPD; +MAVYRET; +MUCINEX DM ER1 EAC1 PO; +PROMETHAZINE W473 M1 PO; +PROTONIX40 MG PO
[2017-07-05 17:28] VITALS: BP 149/85; BMI 27.5
[2017-07-05 19:29] VITALS: BP 153/86
--- NOTE | 2017-07-05 19:29 | NUR ---
RECIEVED UP IN BED WITH EYES OPEN AND TV ON. PLEASANT AND COOPERATIVE. ALERT AND ORIENTED X 4. DENIES ANY PAIN AT THIS TIME. CALL LIGHT AND OVERBED TABLE IN REACH.
--- NOTE | 2017-07-05 21:48 | NUR ---
AUGUSTO TY STATES " THEY QUIT GIVING ME THAT BECAUSE MY BLOOD SUGAR WAS TOO LOW". ATTEMPTS TO EDUCATE UNSUCESSFUL.
--- NOTE | 2017-07-05 23:09 | NUR ---
RESTING IN BED WITH EYES CLOSED. NO S/S OF DISTRESS OBSERVED. CALL LIGHT AND OVERBED TABLE IN REACH.
--- NOTE | 2017-07-06 04:14 | NUR ---
RESTING IN BED WI6TH EYES CLOSED. NO S/S OF DISTRESS OBSERVED. CALL LIGHT AND OVERBED TABLE IN REACH.
[2017-07-06 07:38] LABS: BASOPHILS 0.2 % (0-2); EOSINOPHILS 1.7 % (0-7); HEMATOCRIT 25.9 % (36.0-48.0); HEMOGLOBIN 8.2 g/dL (12-16); IMMATURE GRANULOCYTES 0.7 % (0-5); LYMPHOCYTES 44.3 % (15-50); MCHC 31.7 g/dL (31.0-37.0); MEAN PLATELET VOLUME 10.2 fL (7.4-10.4); MONOCYTES 8.1 % (2-11); PLATELET COUNT 186 10x3/uL (130-400); RBC 3.41 10x6/uL (4.00-5.40); RDW 21.3 % (11.5-14.5); WBC 4.2 10x3/uL (4.8-10.8)
--- NOTE | 2017-07-06 07:40 | NUR ---
LYING IN BED ON LEFT SIDE EYES CLOSED RESTING. APPROPRIATE RISE AND FALL OF CHEST. NO S/SX OF ACUTE DISTRESS NOTED. CALL LIGHT WITHIN REACH, BED LOW AND ALARM ON. WILL CONTINUE TO MONITOR
[2017-07-06 07:46] LABS: CALC OSMOLALITY 274 mosm/kg (275-300); CALCIUM 7.5 mg/dL (8.5-10.1); CARBON DIOXIDE 26.5 mmol/L (21.0-32.0); CHLORIDE - SERUM 108 mmol/L (98-107); CREATININE - SERUM 0.8 mg/dL (0.6-1.3); GLUCOSE 84 mg/dL (74-106); POTASSIUM - SERUM 3.3 mmol/L (3.5-5.1); SODIUM 140 mmol/L (136-145); UREA NITROGEN 5 mg/dL (7-18); eGFR NON AFRICAN AMERICAN 76 mL/min (90-120)
--- NOTE | 2017-07-06 08:29 | NUR ---
SITTING UP EATING BREAKFAST. DENIES NEEDS.
--- NOTE | 2017-07-06 09:53 | NUR ---
IN THERAPY GYM WITH PHYSICAL THERAPY. WILL CONTINUE TO MONTIOR
--- NOTE | 2017-07-06 10:54 | NUR ---
IN THERAPY GYM OCCUPATIONAL THERAPY. DENIES ANY NEEDS OR PAIN. WILL CONTINUE TO MONITOR
[2017-07-06 11:11] VITALS: Ht 167.6 cm; Wt 77.1 kg
--- NOTE | 2017-07-06 11:36 | NUR ---
PATIENT ADMITTED TO REHAB FROM ACUTE FLOOR. HER PCP IS DR. MARTA BOYKIN IN [place]. DME AT HOME ROLLING WALKER AND SHOWER CHAIRRELL IS HER DME COMPANY. DISCHARGE PLANS ARE FOR HER TO DISCHARGE HOME WITH FAMILY. WILL CONTINUE TO FOLLOW WITH PATIENT AND WILL ASSIST WITH DISCHARGE NEEDS.
--- NOTE | 2017-07-06 13:58 | NUR ---
LYING IN BED ON RIGHT SIDE EYES CLOSED RESTING. APPROPRIATE RISE AND FALL OF CHEST. NO S/SX OF ACUTE DISTRESS NOTED. CALL LIGHT AND PERSONAL ITEMS WITHIN REACH, BED LOW AND ALARM ON. WILL CONTINUE TO MONITOR
--- NOTE | 2017-07-06 17:02 | NUR ---
SITTING UP IN BED VISITING WITH FAMILY. DENIES ANY NEEDS OR PAIN. NO S/SX OF ACUTE DISTRESS NOTED. CALL LIGHT AND PERSONAL ITEMS WITHIN REACH, BED LOW AND ALARM ON. WILL CONTINUE TO MONITOR
--- NOTE | 2017-07-06 19:50 | NUR ---
PT. IN BED WITH HOB UP FOR COMFORT AND WATCHING TV. CALL LIGHT WITHIN REACH.
--- NOTE | 2017-07-06 21:21 | NUR ---
PT IS RESTING IN BED WITH EYES CLOSED. AWAKENS EASILY TO VERBAL STIMULI. DENIES ANY NEEDS AT THIS TIME. NO DISTRESS NOTED. REFUSED PM INSULIN. SR'S ARE UP X 2 IN BED. CALL LIGHT AND BEDSIDE TABLE ARE WITHIN EASY REACH.
[2017-07-06 21:51] VITALS: BP 114/76
--- NOTE | 2017-07-07 00:05 | NUR ---
RESTING IN BED WITH EYES CLOSED.
--- NOTE | 2017-07-07 03:00 | NUR ---
PT RESTING IN BED WITH EYES CLOSED. NO ACUTE DISTRESS NOTED.
--- NOTE | 2017-07-07 05:53 | NUR ---
PT RESTING IN BED WITH EYES CLOSED. AWOKE EASILY TO VERBAL STIMULI. NO COMPLAINT VOICED. TOLERATED AM MED WITHOUT DIFFICULTY.
[2017-07-07 08:00] VITALS: BP 127/77
--- NOTE | 2017-07-07 08:00 | NUR ---
PATIENT ALERT/ORIENT X4. USING CALL LIGHT FOR NEEDS. CALL LIGHT WITHIN REACH.
--- NOTE | 2017-07-07 10:09 | NUR ---
PATIENT IN REHAB ROOM. WORKING WITH PHYSICAL THERAPIST.
--- NOTE | 2017-07-07 12:50 | NUR ---
FAMILY IN ROOM WITH PATIENT. FAMILY BROUGHT IN HOME MEDICATION THAT HAS BEEN ORDERED. MEDICATION CHECKED WITH PHARMACY
--- NOTE | 2017-07-07 16:00 | NUR ---
USES CL BUT DOES NOT WAIT ON PERSONEL TO ASSIST.WALKED IN ROOM WITH HER IN THE BATHROOM.ENCOUARGED SHE CAN NOT WAIT.ALARMS RESET SEVERAL TIMES TODAY.
--- NOTE | 2017-07-07 16:54 | NUR ---
GLUCOSE LEVEL 133. NO SLIDING SCALE INSULIN GIVEN PER ORDERS
[2017-07-07 20:00] VITALS: BP 135/72
--- NOTE | 2017-07-07 20:15 | NUR ---
PT. IN BED WITH HOB UP FOR COMFORT AND IS WATCHING TV. NO VOICED NEEDS AT THIS TIME AND HER CALL LIGHT IS WITHIN REACH.
--- NOTE | 2017-07-07 21:00 | NUR ---
PT IN BED WITH HOB UP FOR COMFORT. WATCHING TV. ALERT & ORIENTED. STAND BY ASSIST. NO O2. NO IV. FSBS ACHS. BED IN LOWEST POSITION AND CALL LIGHT WITHIN REACH.
--- NOTE | 2017-07-08 01:00 | NUR ---
PT IN BED WITH HOB UP FOR COMFORT. EYES CLOSED. CHEST RISING AND FALLING. BED IN LOWEST POSTION AND CALL LIGHT WITHIN REACH.
--- NOTE | 2017-07-08 04:42 | NUR ---
PT LYING IN BED. EYES CLOSED. CHEST RISING AND FALLING. BED IN LOWEST POSITION AND CALL LIGHT WITHIN REACH.
--- NOTE | 2017-07-08 08:00 | NUR ---
SHIFT ASSMT COMPLETED.DENIES NEEDS.BREAKFAST GIVEN.SBA TO BATHROOM.DOES 100%.CL IN REACH.
[2017-07-08 08:39] VITALS: BP 116/71
--- NOTE | 2017-07-08 12:00 | NUR ---
SITTING ON SIDE OF BED EATING LUNCH.DENIES NEEDS.
--- NOTE | 2017-07-08 16:00 | NUR ---
RESTING QUIETLY.CL IN REACH.DENIES NEEDS.
[2017-07-08 19:00] VITALS: BP 125/75
--- NOTE | 2017-07-08 19:16 | NUR ---
PT. IN BED WITH HOB UP FOR COMFORT. TV ON AND SHE IS TALKING ON HER PHONE. CALL LIGHT WITHIN REACH.
--- NOTE | 2017-07-08 20:00 | NUR ---
PT IN BED WITH HOB UP FOR COMFORT. WATCHING TV. ALERT & ORIENTED. STAND BY ASSIST. NO O2. NO IV. FSBS ACHS. BED IN LOWEST POSITION AND CALL LIGHT WITHIN REACH. EMBER ALARM ON.
--- NOTE | 2017-07-09 | NUR ---
ASSISTED PT TO BATHROOM AND BACK TO BED.
--- NOTE | 2017-07-09 04:00 | NUR ---
PT LYING IN BED WITH HOB UP FOR COMFORT. EYES CLOSED. CHEST RISING AND FALLING. BED IN LOWEST POSITION AND CALL LGIHT WITHIN REACH. EMBER ALARM ON.
[2017-07-09 07:11] LABS: HEMATOCRIT 27.7 % (36.0-48.0); HEMOGLOBIN 8.6 g/dL (12-16); MCH 23.9 pg (26.0-34.0); MCV 76.9 fL (80.0-100.0); PLATELET COUNT 169 10x3/uL (130-400); WBC 4.5 10x3/uL (4.8-10.8)
[2017-07-09 07:25] LABS: ANION GAP 10.8 mmol/L (8-16); CALCIUM 7.7 mg/dL (8.5-10.1); CARBON DIOXIDE 25.5 mmol/L (21.0-32.0); CREATININE - SERUM 0.9 mg/dL (0.6-1.3); POTASSIUM - SERUM 3.3 mmol/L (3.5-5.1)
[2017-07-09 07:40] LABS: BASOPHILS 1 % (0-2); LYMPHOCYTES 53 % (15-50); MICROCYTOSIS OCC; MONOCYTES 5 % (2-11); NEUTROPHILS 41 % (40-80); PLATELET ESTIMATE NORMAL
--- NOTE | 2017-07-09 08:00 | NUR ---
PATIENT ALERT/ORIENT X4. CALL LIGHT WITHIN REACH
[2017-07-09 08:52] VITALS: BP 141/87
--- NOTE | 2017-07-09 10:24 | NUR ---
PATIENT IN REHAB ROOM. WORKING WITH OCCUPATIONAL THERAPIST. DENIES ANY PAIN/DISC AT THIS TIME.
--- NOTE | 2017-07-09 11:45 | NUR ---
GLUCOSE LEVEL 102. NO SLIDING SCALE INSULIN GIVEN
--- NOTE | 2017-07-09 16:45 | NUR ---
GLUCOSE LEVEL 123. NO SLIDING SCALE INSULIN GIVEN
--- NOTE | 2017-07-09 19:26 | NUR ---
REST IN BED AND LISTEN TO MUSIC.
[2017-07-09 22:27] VITALS: BP 99/63
--- NOTE | 2017-07-10 01:54 | NUR ---
REST QUIETLY IN BED, SIDERAIL X 2, CALL LIGHT IN REACH.
--- NOTE | 2017-07-10 02:55 | NUR ---
RESTING IN BED, EYES CLOSED.
--- NOTE | 2017-07-10 04:50 | NUR ---
REST IN BED, CALL LIGHT IN REACH.
--- NOTE | 2017-07-10 05:48 | NUR ---
PT FSBS IS 88, AND PT SIT UP IN BED AND EAT SNACK.
[2017-07-10 08:01] VITALS: BP 146/90
--- NOTE | 2017-07-10 10:02 | NUR ---
Nutrition Follow Up: Pt stated that her appetite is improving but remains fair. She said that she does not like the hospital food sometimes so she is eating some outside food. Pt said that she does not like Glucerna and request that it be d/c. Pt is eating 56% meal avg on a diabetic diet. +BM 07/09/17. Meds and labs reviewed. Rec continue current diet. Will continue to honor food preferences. RD following.
--- NOTE | 2017-07-10 11:06 | NUR ---
CLINICALS FAXED TO [facility] AT , AUTH. # [id number], POLICY # [id number], WITH TENATIVE DISCHARGE DATE 07/12/17.
--- NOTE | 2017-07-10 12:32 | NUR ---
SITTING UP IN W/C IN ROOM EATING LUNCH AND TALKING ON PHONE. DENIED PAIN OR NEEDS.
--- NOTE | 2017-07-10 13:13 | RHP ---
PATIENT: CARLOS ALBERTO MOORE MEDICAL RECORD: [id number] ACCOUNT: [id number] LOCATION:[facility] : 50 ADMISSION DATE: 07/05/17 REHABILITATION HISTORY AND PHYSICAL EXAMINATION POST ADMISSION PHYSICIAN EXAMINATION DATE OF ADMISSION: 07/05/2017 ADMITTING DIAGNOSES: Debility. HISTORY OF PRESENT ILLNESS: The patient is admitted to inpatient rehab for debility secondary to pneumonia. She is a 66-year-old female patient who is followed by Dr. Alex Bettencourt and Yasmin Marmolejo in [place] for her HIV and HCV. She has been feeling bad, was seen and evaluated in the Emergency Room with antibiotics for her stated UTI. She has been feeling a little bit better, but again became weak, dizzy, and fell. She complained of pain all over her body at the time she felt weak. She was admitted to the acute hospitalist for pneumonia and transferred to the ICU secondary to hypotension, but IV fluids seem to help this. She has a history of diabetes, hepatitis C, hypertension, HIV, history of pneumonia. She has had an extended hospital stay and has been very weak and deconditioned. She requires rest breaks even with ADLs and ambulation, was at home with 2 teenage grandchildren. She was markedly independent with use a cane and independent with her ADLs, currently set up for moderate to max assist with ADLs and min to moderate assist with mobility using a rolling walker. She would like to return home at her prior level of functioning or better if possible. COMORBIDITIES: In this patient include HIV, diabetes, chronic hep C, diabetic neuropathy, fever and chills, hypokalemia, hypotension, renal failure, anemia, abdominal pain, leukocytosis, pleuritic chest pain, sinusitis, nausea and vomiting. PAST MEDICAL HISTORY: Significant for glaucoma, diabetes, hepatitis, hypertension, pneumonia, HIV, hepatitis, and anxiety. PAST SURGICAL HISTORY: Includes a right total knee, surgery to her neck, trigger thumb surgery, and left knee replacement. ALLERGIES: SULFA AND TRIMETHOPRIM. CURRENT MEDICATIONS: She is on HIV drugs of her own. She is on Protonix 40 mg daily. She is on glucose replacement protocol p.r.n. She is on DuoNeb updrafts 3 cc q.i.d. p.r.n. She is on a low resistant sliding scale for insulin. She is on Lantus 40 units at bedtime, [place] 1-2 tabs q.4. hours p.r.n., Mucinex D 1 tab b.i.d., Cosopt eyedrops, Tessalon Perles 200 mg t.i.d., and polyethylene glycol 17 grams in 8 ounces of water daily. HABITS: No current alcohol or tobacco use. FAMILY HISTORY: Noncontributory. SOCIAL HISTORY: The patient hopes to return back home and get back to taking care of her grandchildren. REVIEW OF SYSTEMS: HISTORY AND PHYSICAL [id number] CARLOS ALBERTO MOORE GENERAL: Does complain of weakness or fatigue. HEENT: Denies cold, cough, or congestion. CARDIOVASCULAR: Denies chest pain. PHYSICAL EXAMINATION: VITAL SIGNS: Stable, afebrile. GENERAL: Elderly female in no acute distress, alert upon exam. HEENT: Normocephalic and atraumatic. Mucosa moist. NECK: Supple. Normal lymphadenopathy. LUNGS: Coarse breath sounds bilaterally. CARDIOVASCULAR: Regular rate and rhythm. ABDOMEN: Benign. EXTREMITIES: No clubbing, cyanosis, or edema. NEUROLOGIC: Intact. LABORATORY DATA: White count 4.2, H&H of 8.2 and 25.9, her MCV is decreased to 76.0, her platelet count is 186. Her sodium is 140, potassium 3.3, BUN and creatinine of 5 and 0.8, and blood sugar is noted to be 84. 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 The patient has potential to make improvement. We instituted the following multidisciplinary therapies including to, but not limited to physical, occupational, respiratory, speech, nutritional services, prosthetics, and orthotics. Given her complex condition and risk for more complications, rehabilitation services cannot be provided at a lower level of care such as a penitentiary facility. PLAN: 1. Admit to [facility] rehab for intensive inpatient therapy to include the following disciplines: A. Physical therapy to improve gait, all transfer skills and bed mobility to a modified independent level. B. Occupational therapy to improve activities of daily living to a modified level. C. Case management to assist with discharge planning and placement options. D. Nutrition to assist with nutritional needs. E. Rehabilitation nursing to assist in monitoring the patient's underlying medical condition and to assist with any type of bowel or bladder management. 2. The patient's current medication and medical care will be continued. 3. The patient will be placed on standard fall precautions. 4. We will continue her current antibiotics as prescribed. 5. Discuss this patient during care team staff meeting this week. TRANSINT:[id number] Voice Confirmation ID: [id number] DOCUMENT ID: [id number] RASHAWN notes whether there has been none or any medical/functional change since admission: - No change since pre-admission screen. RASHAWN attests patient continues to be appropriate for IRF: - Continues to be appropriate. HISTORY AND PHYSICAL [id number] CARLOS ALBERTO MOORE SCOTT MD at 1313 CC: [id number] DICTATION DATE: 07/06/17 0843 OIL PIPELINE DISPATCHER: 07/06/17 1018 ADM IN [facility] [address] [place] [address]
--- NOTE | 2017-07-10 15:04 | NUR ---
LAYING IN BED WATCHING TV. DENIES NEEDS. CALL LIGHT IN REACH
--- NOTE | 2017-07-10 17:59 | NUR ---
RESTING QUIETLY IN BED, WATCHING TV. CALL LIGHT IN REACH
--- NOTE | 2017-07-10 19:22 | NUR ---
PT RESTING IN BED WITH EYES CLOSED. AWOKE EASILY TO VERBAL STIMULI. ALERT AND ORIENTED X 3. DENIES ACUTE PAIN OR DISCOMFORT AT THIS TIME. NO NEEDS VOICED. SR'S ARE UP X 2 IN BED. CALL LIGHT AND BEDSIDE TABLE ARE WITHIN EASY REACH.
[2017-07-10 21:33] VITALS: BP 145/85
--- NOTE | 2017-07-10 22:33 | NUR ---
RESTING QUIETLY IN BED WITH EYES CLOSED. RESPS ARE EVEN AND UNLABORED. NO ACUTE DISTRESS NOTED.
--- NOTE | 2017-07-11 00:12 | NUR ---
RESTING IN BED WITH EYES CLOSED.
--- NOTE | 2017-07-11 01:55 | NUR ---
RESTING QUIETLY IN BED ON RIGHT SIDE. NO DISTRESS EVIDENT.
--- NOTE | 2017-07-11 03:00 | NUR ---
PT RESTING IN BED WITH EYES CLOSED.
--- NOTE | 2017-07-11 05:14 | NUR ---
PT RESTING IN BED WITH EYES CLOSED.
[2017-07-11 06:52] LABS: BASOPHILS 0.7 % (0-2); EOSINOPHILS 2.3 % (0-7); HEMATOCRIT 27.9 % (36.0-48.0); HEMOGLOBIN 8.6 g/dL (12-16); LYMPHOCYTES 58.5 % (15-50); MCH 23.8 pg (26.0-34.0); MCHC 30.8 g/dL (31.0-37.0); MCV 77.3 fL (80.0-100.0); MEAN PLATELET VOLUME 10.1 fL (7.4-10.4); MONOCYTES 11.4 % (2-11); NEUTROPHILS 27.1 % (40-80); PLATELET COUNT 176 10x3/uL (130-400); RBC 3.61 10x6/uL (4.00-5.40); RDW 20.9 % (11.5-14.5); WBC 4.4 10x3/uL (4.8-10.8)
[2017-07-11 07:02] LABS: CALC OSMOLALITY 272 mosm/kg (275-300); CALCIUM 8.2 mg/dL (8.5-10.1); CARBON DIOXIDE 25.4 mmol/L (21.0-32.0); CHLORIDE - SERUM 105 mmol/L (98-107); CREATININE - SERUM 0.8 mg/dL (0.6-1.3); GLUCOSE 91 mg/dL (74-106); POTASSIUM - SERUM 3.7 mmol/L (3.5-5.1); SODIUM 137 mmol/L (136-145); eGFR NON AFRICAN AMERICAN 76 mL/min (90-120)
[2017-07-11 07:06] LABS: UREA NITROGEN 9 mg/dL (7-18)
[2017-07-11 07:58] VITALS: BP 136/89
--- NOTE | 2017-07-11 08:25 | NUR ---
PT AM MEDS ADMINSITERED AT THIS TIME. PT DENIES NEEDS. WCTM.
--- NOTE | 2017-07-11 11:23 | NUR ---
PATIENT DISCHARGING HOME WITH FAMILY. [facility] WILL FOLLOW WITH PATIENT AT HOME FOR THERAPY.[facility] HAS DELIVERED A ROLLING WALKER AND A BSC TO PATIENT. DR. MARTA BOYKIN 07/27/2017 @ 9:45. PATIENT CHOICE FORM FOR HOME HEALTH AND IMFM FORM SIGNED, EXPLAINED AND FILED IN CHART. DISCHARGE INSTRUCTIONS AND FIM DATA HAS BEEEN FAXED TO DR. BOYKIN WITH CONFORMATION RECIEVED. DISCHARGE CLINICALS HAVE BEEN FAXED TO [facility] AT , AUTH. # [id number], POLICY # [id number] , WITH CONFORMATION RECIEVED
--- NOTE | 2017-07-11 11:47 | NUR ---
PT DISCHARGE INSTRUCTIONS REVIEWED. MEDS CALLED IN TO [facility], PHARMACIST JUNIE. PT ESCORTED OUT VIA WHEELCHAIR BY HOSPITAL STAFF. PT DISCHARGING HOME WITH FAMILY.
--- NOTE | 2017-08-30 14:37 | DS ---
PATIENT:CARLOS ALBERTO MOORE :50 MEDICAL RECORD: [id number] DISCHARGE SUMMARY ADMISSION DATE: 07/05/17 DISCHARGE DATE: 07/11/17 This is a discharge dated 07/11/2017 from inpatient rehab. PRIMARY DIAGNOSIS: Decreased functional ability and ability to provide activities of daily living secondary to debility with pneumonia. SECONDARY DIAGNOSES: 1. Diabetes. 2. Hypokalemia. 3. HIV. 4. Hepatitis C virus. 5. Hypertension. 6. Glaucoma. 7. Anxiety. HOSPITAL COURSE: Full H&P is located elsewhere on the chart on this 66-year-old female who was admitted to inpatient rehab for physical therapy and occupational therapy to improve gait, transfer skills, bed mobility, and activities of daily living to a modified independent level. She was evaluated by PT and OT and their plans of care were followed. She required prison care for observation and assessment and medication administration. Fingerstick blood sugars were monitored throughout her hospital stay with appropriate adjustment in medications as needed. Electrolytes were managed by protocol. She was on DuoNebs for respiratory support. She was cooperative with therapies, progressing towards goals. Case management was involved for discharge planning. She was considered stable for discharge on 07/11/2017. DISCHARGE MEDICATIONS: As per discharge medication reconciliation. DISCHARGE DISPOSITION: The patient is discharged home. She will continue her current diet and level of activity. She will have home health for continued PT and OT. She will get a rolling walker from [facility]. She will follow up with primary care in 7 to 10 days and specialists as directed. At least 30 minutes was spent in this discharge activity. TRANSINT:[id number] Voice Confirmation ID: [id number] DOCUMENT ID: [id number] Dictated By: LIDA WALSH I have interviewed/examined the above patient and agree with these documented findings. BANDAR GROVER MD at 1802 at 1437 CC: [id number] DICTATION DATE: 08/26/17 1433 WAITRESS: 08/27/17 0152 DIS IN 07/11/17 [facility] [address] [place] [address]
== END 2017-07-11 11:48 | disposition home health service (06) | DRG 975 ==
LOC: D.REHAB 16:22
PROVIDERS: ADMIT Emergency Medicine
DX: J18.9 Pneumonia, unspecified organism (principal); B20 Human immunodeficiency virus [HIV] disease; N17.9 Acute kidney failure, unspecified; R53.81 Other malaise; B18.2 Chronic viral hepatitis C; E11.40 Type 2 diabetes mellitus with diabetic neuropathy, unspecified; E87.6 Hypokalemia; I95.9 Hypotension, unspecified; D64.9 Anemia, unspecified; D72.829 Elevated white blood cell count, unspecified; R11.2 Nausea with vomiting, unspecified; R09.1 Pleurisy

== ENCOUNTER 2018-02-22 14:50 | Emergency (ER) | payer MEDICARE, MEDICAID ==
[~2018-02-22] VITALS: Ht 167.6 cm; Wt 68.2 kg
[2018-02-22 15:35] VITALS: Ht 167.6 cm; Wt 68.2 kg
[2018-02-22 16:26] LABS: HEMATOCRIT 36.6 % (36.0-48.0); HEMOGLOBIN 11.9 g/dL (12-16); MCH 26.4 pg (26.0-34.0); MCHC 32.5 g/dL (31.0-37.0); MCV 81.2 fL (80.0-100.0); MEAN PLATELET VOLUME 9.9 fL (7.4-10.4); RBC 4.51 10x6/uL (4.00-5.40); RDW 24.5 % (11.5-14.5)
[2018-02-22 16:29] LABS: PLATELET COUNT 122 10x3/uL (130-400)
[2018-02-22 16:42] LABS: ANION GAP 11.2 mmol/L (8-16); BILIRUBIN - TOTAL 0.77 mg/dL (0.2-1.3); CALCIUM 8.6 mg/dL (8.5-10.1); CARBON DIOXIDE 24.4 mmol/L (21.0-32.0); CREATININE - SERUM 0.9 mg/dL (0.6-1.3); POTASSIUM - SERUM 3.6 mmol/L (3.5-5.1); PROTEIN - SERUM 9.2 g/dL (6.4-8.2)
[2018-02-22 17:20] LABS: LYMPHOCYTES 59 % (15-50); MONOCYTES 5 % (2-11); NEUTROPHILS 36 % (40-80); PLATELET ESTIMATE NORMAL; ROULEAUX OCC
[2018-02-22 19:48] LABS: AMYLASE - SERUM 50 U/L (25-115); CKMB 0.7 U/L (0.0-3.6); CREATINE KINASE 43 UL (21-215); LIPASE 195 U/L (73-393); THYROID STIMULATING HORMONE 2.29 uIU/mL (0.36-3.74)
[2018-02-22 19:49] LABS: TROPONIN-I < 0.017 ng/mL (0.000-0.060)
[2018-02-22 20:06] LABS: APPEARANCE CLOUDY (CLEAR); BILIRUBIN 1+ (NEGATIVE); COLOR AMBER (YELLOW); GLUCOSE NEGATIVE (NEGATIVE); KETONE NEGATIVE (NEGATIVE); NITRITE NEGATIVE (NEGATIVE); PROTEIN NEGATIVE (NEGATIVE); SPECIFIC GRAVITY 1.025 (1.005-1.020)
[2018-02-22 20:07] LABS: BACTERIA MODERATE /hpf (NONE SEEN); EPITHELIAL CELLS 0-5 /hpf (0-5); RED CELLS - URINE 0-5 /hpf (0-5); WHITE CELLS - URINE 0-5 /hpf (0-5)
[2018-02-22 20:08] LABS: MUCUS >1+ /lpf (NONE SEEN)
[2018-02-22] MEDS ORDERED: MACROBID100 MG PO (20:36)
[2018-02-22 21:31] VITALS: BP 154/100
== END 2018-02-22 20:55 | disposition home or self-care (01) ==
LOC: D.ER 14:50
PROVIDERS: Family Medicine
DX: N39.0 Urinary tract infection, site not specified (principal); R53.1 Weakness; E11.9 Type 2 diabetes mellitus without complications; I10 Essential (primary) hypertension; K21.9 Gastro-esophageal reflux disease without esophagitis

== ENCOUNTER 2018-06-04 17:56 | Observation (INO) | payer MEDICARE, MEDICAID ==
[~2018-06-04] VITALS: Ht 167.6 cm; Wt 70.9 kg
--- NOTE | ~2018-06-04 | MORECARE ---
CASE MANAGEMENT DISCHARGE SUMMARY PATIENT: CARLOS ALBERTO MOORE UNIT: [id number] ADM DATE: 06/04/18 AGE: 67 : 50 SEX: F ROOM/BED: D.2105 AUTHOR: CHANELL,DOC PHYSICIAN: REFERRING PHYSICIAN: YOLY VEGA MD DATE OF SERVICE: 06/08/18 Discharge Plan Patient Name: CARLOS ALBERTO MOORE Facility: [facility]:[place] : 1950 Planned Disposition: Home Health Service Anticipated Discharge Date: 06/08/18 Discharge Date: 06/08/2018 Expected LOS: 4 Initial Reviewer: [email or web address] Initial Review Date: 06/04/2018 Generated: 06/08/18 9:28 pm DCPIA - Discharge Planning Initial Assessment Updated by [id number]: Morenita Diggs on 06/08/18 8:23 pm * Is the patient Alert and Oriented? Yes * How many steps to enter\exit or inside your home? 1 step * PCP DR Alex Bettencourt in [address] * [facility]acy [facility] * Preadmission Environment Home with Family * ADLs Independent * Equipment Cane Shower Chair Walker * Other Equipment N/A * List name and contact numbers for known caregivers / representatives who currently or will assist patient after discharge: BRADLY HADDAD [facility] [phone] * Verbal permission to speak to the caregivers and representatives has been obtained from the patient. No * Community resources currently utilized None * Please name any agencies selected above. N/A * Additional services required to return to the preadmission environment? Yes * Can the patient safely return to the preadmission environment? Yes * Has this patient been hospitalized within the prior 30 days at any hospital? No Coverage Notice Reviewer: [id number] Ansley Dumont [place] Notice Issued Date-Time: 06/05/2018 10:20 Notice Type: Medicare Outpatient Observation Notice Notice Delivered To: Patient Relationship to Patient: Self City Routeman Name: Delivery Method: HAND - Hand Delivered Dora Days: Prior Verbal Notification: Recipient Understood Notice: Yes Recipient Signature: Yes Med Rec Note Co-signed by Attending: Coverage Notice Comment: Last DP export: 06/08/18 7:21 Patient Name: CARLOS ALBERTO MOORE Page [id number] at 2027 All edits/amendments must be made on the electronic document DICTATION DATE: 06/08/182026 FUR BLENDER: NIELS 06/08/182026 RPT#: [id number] DC DATE:06/08/18 STATUS: DIS IN [facility] [address] [place] [address] END OF REPORT
--- NOTE | ~2018-06-04 | MORECARE ---
CASE MANAGEMENT DISCHARGE SUMMARY PATIENT: CARLOS ALBERTO MOORE UNIT: [id number] ADM DATE: 06/04/18 AGE: 67 : 50 SEX: F ROOM/BED: D.2105 AUTHOR: CHANELL,DOC PHYSICIAN: REFERRING PHYSICIAN: YOLY VEGA MD DATE OF SERVICE: 06/08/18 Discharge Plan Patient Name: CARLOS ALBERTO MOORE Facility: [facility]:[place] : 1950 Planned Disposition: Home Health Service Anticipated Discharge Date: 06/08/18 Discharge Date: 06/08/2018 Expected LOS: 4 Initial Reviewer: [email or web address] Initial Review Date: 06/04/2018 Generated: 06/08/18 9:40 pm Comments DCP- Discharge Planning Updated by [email or web address]: Morenita Diggs on 06/08/18 7:[address] Patient Name: CARLOS ALBERTO MOORE Admission Status: ER Accout number: [id number] Admission Date: 06-04-2018 : 1950 Admission Diagnosis: Attending: YOLY VEGA Current LOS: 4 Anticipated DC Date: 06-08-2018 Planned Disposition: Home Health Service Primary Insurance: [employer] MEDICARE ADV Discharge Planning Comments: LATE ENTRY 1400 MET AT THE PATIENT'S BEDSIDE. NO VISITORS IN THE ROOM. SHE STATES HER GRANDSON AND GRANDDAUGHTER LIVE WITH HER. SHE JUST MOVED TO A DIFFERENT HOME W/ 2 BEDROOMS NOT THREE BEFORE. STILL TRYING TO SETTLE IN. THE GRANDCHILDREN DO NOT PROVIDE MUCH ASSISTANCE TO THE PATIENT. THERE IS ONE STEP TO ENTER HER HOME. SHE FATIGUES EASILY. DOES THE BEST SHE CAN DO AND HAS TO TAKE HER TIME. SHE WILL HAVE TRANSPORTATION TO HOME. [facility]Y- [facility] [address] PCP- DR ALEX BOYKIN [facility]- NO SERVICES AT [facility] TIME BUT HAS UTILIZED [employer] PREVIOUSLY. PATIENT CHOICE FORM SIGNED FOR [employer]. HAS A CANE, WALKER AND SHOWER BENCH. DENIES ANY OTHER DME. NO ADDITIONAL NEEDS. CM EXPLAINED DISCHARGE IMM. PATIENT STATED SHE HAD NO QUESTIONS AND IS READY TO GO TO HER HOME. SIGNATURE OBTAINED. COPY TO THE PATIENT. COPY TO HARD CHART. TC TO [employer]. SHE HAS BEEN ON SERVICE PREVIOUSLY. CM FAXED REFERRAL. PATIENT WILL BE SEEN SUNDAY. Relief Driller: Morenita Diggs DCPIA - Discharge Planning Initial Assessment Updated by [id number]: Morenita Diggs on 06/08/18 8:23 pm * Is the patient Alert and Oriented? Yes * How many steps to enter\exit or inside your home? 1 step * PCP DR Alex Boykin in [address] * [facility] * Preadmission Environment Home with Family * ADLs Independent * Equipment Cane Shower Chair Walker * Other Equipment N/A * List name and contact numbers for known caregivers / representatives who currently or will assist patient after discharge: BRADLY HADDAD [facility] [phone] * Verbal permission to speak to the caregivers and representatives has been obtained from the patient. No * Community resources currently utilized None * Please name any agencies selected above. N/A * Additional services required to return to the preadmission environment? Yes * Can the patient safely return to the preadmission environment? Yes * Has this patient been hospitalized within the prior 30 days at any hospital? No Coverage Notice Reviewer: [id number] Ansley Dumont [place] Notice Issued Date-Time: 06/05/2018 10:20 Notice Type: Medicare Outpatient Observation Notice Notice Delivered To: Patient Relationship to Patient: Self Executive Vice President Business Development Name: Delivery Method: HAND - Hand Delivered Dora Days: Prior Verbal Notification: Recipient Understood Notice: Yes Recipient Signature: Yes Med Rec Note Co-signed by Attending: Coverage Notice Comment: Reviewer: [id number] - Morenita Diggs Notice Issued Date-Time: 06/08/2018 14:35 Notice Type: IM Discharge Notice Notice Delivered To: Patient Relationship to Patient: Executive Vice President Business Development Name: Delivery Method: HAND - Hand Delivered Dora Days: Prior Verbal Notification: Recipient Understood Notice: Yes Recipient Signature: Yes Med Rec Note Co-signed by Attending: Coverage Notice Comment: CM DISCUSSED DISCHARGE IMM. PATIENT UNDERSTOOD . HAD NO QUESTIONS OR CONCERNS. SIGNATURE OBTAINED. COPY TO THE PATIENT AND SIGNED COPY TO HER CHART. Last DP export: 06/08/18 7:28 Patient Name: CARLOS ALBERTO MOORE Page [phone] at 204 All edits/amendments must be made on the electronic document DICTATION DATE: 06/08/182039 FINANCIAL AID ADVISOR: NIELS 06/08/182039 RPT#: [id number] DC DATE:06/08/18 STATUS: DIS IN [facility] [address] [place] [address] END OF REPORT
--- NOTE | ~2018-06-04 | MORECARE ---
CASE MANAGEMENT DISCHARGE SUMMARY PATIENT: CARLOS ALBERTO MOORE UNIT: [id number] ADM DATE: 06/04/18 AGE: 67 : 50 SEX: F ROOM/BED: D.2105 AUTHOR: CHANELL,DOC PHYSICIAN: REFERRING PHYSICIAN: YOLY VEGA MD DATE OF SERVICE: 06/10/18 Discharge Plan Patient Name: CARLOS ALBERTO MOORE Facility: [facility]:[place] : 1950 Planned Disposition: Home Health Service Anticipated Discharge Date: 06/08/18 Discharge Date: 06/08/2018 Expected LOS: 4 Initial Reviewer: [email or web address] Initial Review Date: 06/04/2018 Generated: 06/10/18 9:16 am Comments DCP- Discharge Planning Updated by [email or web address]: Morenita Diggs on 06/08/18 7:[address] Patient Name: CARLOS ALBERTO MOORE Admission Status: ER Accout number: [id number] Admission Date: 06-04-2018 : 1950 Admission Diagnosis: Attending: YOLY VEGA Current LOS: 4 Anticipated DC Date: 06-08-2018 Planned Disposition: Home Health Service Primary Insurance: [employer] MEDICARE ADV Discharge Planning Comments: LATE ENTRY 1400 MET AT THE PATIENT'S BEDSIDE. NO VISITORS IN THE ROOM. SHE STATES HER GRANDSON AND GRANDDAUGHTER LIVE WITH HER. SHE JUST MOVED TO A DIFFERENT HOME W/ 2 BEDROOMS NOT THREE BEFORE. STILL TRYING TO SETTLE IN. THE GRANDCHILDREN DO NOT PROVIDE MUCH ASSISTANCE TO THE PATIENT. THERE IS ONE STEP TO ENTER HER HOME. SHE FATIGUES EASILY. DOES THE BEST SHE CAN DO AND HAS TO TAKE HER TIME. SHE WILL HAVE TRANSPORTATION TO HOME. [facility]Y- [facility] [address] PCP- DR ALEX BOYKIN [facility]- NO SERVICES AT [facility] TIME BUT HAS UTILIZED [employer] PREVIOUSLY. PATIENT CHOICE FORM SIGNED FOR [employer]. HAS A CANE, WALKER AND SHOWER BENCH. DENIES ANY OTHER DME. NO ADDITIONAL NEEDS. CM EXPLAINED DISCHARGE IMM. PATIENT STATED SHE HAD NO QUESTIONS AND IS READY TO GO TO HER HOME. SIGNATURE OBTAINED. COPY TO THE PATIENT. COPY TO HARD CHART. TC TO [employer]. SHE HAS BEEN ON SERVICE PREVIOUSLY. CM FAXED REFERRAL. PATIENT WILL BE SEEN SUNDAY. Hand Mold Maker: Morenita Diggs DCPIA - Discharge Planning Initial Assessment Updated by [email or web address]: Morenita Diggs on 06/08/18 8:23 pm * Is the patient Alert and Oriented? Yes * How many steps to enter\exit or inside your home? 1 step * PCP DR Alex Boykin in [address] * Pharmacy [facility] * Preadmission Environment Home with Family * ADLs Independent * Equipment Cane Shower Chair Walker * Other Equipment N/A * List name and contact numbers for known caregivers / representatives who currently or will assist patient after discharge: BRADLY HADDAD [facility] [phone] * Verbal permission to speak to the caregivers and representatives has been obtained from the patient. No * Community resources currently utilized None * Please name any agencies selected above. N/A * Additional services required to return to the preadmission environment? Yes * Can the patient safely return to the preadmission environment? Yes * Has this patient been hospitalized within the prior 30 days at any hospital? No Coverage Notice Reviewer: [email or web address] Ansley Gomes Notice Issued Date-Time: 06/05/2018 10:20 Notice Type: Medicare Outpatient Observation Notice Notice Delivered To: Patient Relationship to Patient: Self Senior Technical Specialist Name: Delivery Method: HAND - Hand Delivered Dora Days: Prior Verbal Notification: Recipient Understood Notice: Yes Recipient Signature: Yes Med Rec Note Co-signed by Attending: Coverage Notice Comment: Reviewer: [id number] - Moreniat Diggs Notice Issued Date-Time: 06/08/2018 14:35 Notice Type: IM Discharge Notice Notice Delivered To: Patient Relationship to Patient: Senior Technical Specialist Name: Delivery Method: HAND - Hand Delivered Dora Days: Prior Verbal Notification: Recipient Understood Notice: Yes Recipient Signature: Yes Med Rec Note Co-signed by Attending: Coverage Notice Comment: CM DISCUSSED DISCHARGE IMM. PATIENT UNDERSTOOD . HAD NO QUESTIONS OR CONCERNS. SIGNATURE OBTAINED. COPY TO THE PATIENT AND SIGNED COPY TO HER CHART. Last DP export: 06/08/18 7:40 Patient Name: CARLOS ALBERTO MOORE Page [phone] at 0816 All edits/amendments must be made on the electronic document DICTATION DATE: 06/10/18 0815 HUMAN PROJECTILE: NIELS 06/10/18 0815 RPT#: [id number] DC DATE:06/08/18 STATUS: DIS IN [facility] [address] [facility] [place] [address] END OF REPORT
--- NOTE | ~2018-06-04 | MORECARE ---
CASE MANAGEMENT DISCHARGE SUMMARY PATIENT: CARLOS ALBERTO MOORE UNIT: [id number] ADM DATE: 06/04/18 AGE: 67 : 50 SEX: F ROOM/BED: D.2105 AUTHOR: DENISA LUA PHYSICIAN: REFERRING PHYSICIAN: YOLY VEGA MD DATE OF SERVICE: 06/08/18 Discharge Plan Patient Name: CARLOS ALBERTO MOORE Facility: [facility]:[place] : 1950 Planned Disposition: Home Health Service Anticipated Discharge Date: 06/08/18 Discharge Date: 06/08/2018 Expected LOS: 4 Initial Reviewer: [email or web address] Initial Review Date: 06/04/2018 Generated: 06/08/18 9:21 pm Coverage Notice Reviewer: [email or web address] Ansley Gomes Notice Issued Date-Time: 06/05/2018 10:20 Notice Type: Medicare Outpatient Observation Notice Notice Delivered To: Patient Relationship to Patient: Self Watermelon Inspector Name: Delivery Method: HAND - Hand Delivered Dora Days: Prior Verbal Notification: Recipient Understood Notice: Yes Recipient Signature: Yes Med Rec Note Co-signed by Attending: Coverage Notice Comment: Patient Name: CARLOS ALBERTO MOORE Page [phone] at 2021 All edits/amendments must be made on the electronic document DICTATION DATE: 06/08/182020 TOBACCO FLAVORER: NIELS 06/08/182020 RPT#: [id number] DC DATE:06/08/18 STATUS: DIS IN [facility] [address] [place] [address] END OF REPORT
[~2018-06-04 17:56] MED LIST changes: +MACROBID100 MG PO
[2018-06-04] MEDS ORDERED: PRINIVIL20 MG PO (18:27)
[2018-06-04] MEDS ORDERED: BIKTARVY (18:28)
[2018-06-04 19:11] LABS: BASOPHILS 0.1 % (0-2); EOSINOPHILS 0 % (0-7); HEMATOCRIT 37.7 % (36.0-48.0); HEMOGLOBIN 12.6 g/dL (12-16); IMMATURE GRANULOCYTES 0.2 % (0-5); LYMPHOCYTES 26.1 % (15-50); MCH 31.7 pg (26.0-34.0); MCHC 33.4 g/dL (31.0-37.0); MEAN PLATELET VOLUME 10.1 fL (7.4-10.4); MONOCYTES 8.9 % (2-11); NEUTROPHILS 64.7 % (40-80); RBC 3.97 10x6/uL (4.00-5.40); RDW 15.4 % (11.5-14.5); WBC 9.5 10x3/uL (4.8-10.8)
[2018-06-04 19:12] LABS: PLATELET COUNT 95 10x3/uL (130-400)
[2018-06-04 19:24] LABS: ANION GAP 8.7 mmol/L (8-16); BILIRUBIN - TOTAL 1.16 mg/dL (0.2-1.3); CALCIUM 8.4 mg/dL (8.5-10.1); CARBON DIOXIDE 27.5 mmol/L (21.0-32.0); CREATININE - SERUM 0.9 mg/dL (0.6-1.3); POTASSIUM - SERUM 3.2 mmol/L (3.5-5.1); PROTEIN - SERUM 10.6 g/dL (6.4-8.2)
[2018-06-04 19:39] LABS: PLATELET ESTIMATE DECREASED
[2018-06-04 20:49] LABS: APPEARANCE HAZY (CLEAR); COLOR DK YELLOW (YELLOW); NITRITE NEGATIVE (NEGATIVE); PROTEIN 1+ mg/dL (NEGATIVE)
[2018-06-04 20:50] LABS: BILIRUBIN NEGATIVE (NEGATIVE); GLUCOSE NEGATIVE (NEGATIVE); KETONE NEGATIVE (NEGATIVE); UROBILINOGEN NORMAL (NORMAL)
[2018-06-04 20:53] LABS: BACTERIA MODERATE /hpf (NONE SEEN); EPITHELIAL CELLS 0-5 /hpf (0-5); MUCUS <1+ /lpf (NONE SEEN); WHITE CELLS - URINE 0-5 /hpf (0-5)
[2018-06-04] MEDS ORDERED: ZITHROMAX500 MG PO (21:26)
[2018-06-04] MEDS ORDERED: OMNICEF300 MG PO (21:26)
[2018-06-04 23:09] VITALS: BP 129/81; BMI 26.5
[2018-06-05] VITALS: BP 129/81
[2018-06-05 04:00] VITALS: BP 129/81; BP 146/87
[2018-06-05 08:35] VITALS: BP 151/93
[2018-06-05 11:50] VITALS: BP 146/89
[2018-06-05 12:26] VITALS: BMI 24.5
[2018-06-05 14:18] VITALS: Ht 167.6 cm; Wt 70.9 kg
[2018-06-05 15:44] VITALS: BP 138/79
[2018-06-05 20:00] VITALS: BP 104/63
[2018-06-06 04:00] VITALS: BP 115/63
[2018-06-06 08:13] VITALS: BP 123/79
[2018-06-06 11:54] VITALS: BP 140/96
[2018-06-06 15:53] VITALS: BP 131/75
[2018-06-06 21:57] VITALS: BP 159/92
[2018-06-07 01:04] VITALS: BP 136/74
[2018-06-07 04:05] LABS: BASOPHILS 0.3 % (0-2); EOSINOPHILS 0.8 % (0-7); HEMOGLOBIN 10.3 g/dL (12-16); IMMATURE GRANULOCYTES 0.3 % (0-5); LYMPHOCYTES 32.2 % (15-50); MCHC 34.3 g/dL (31.0-37.0); MCV 93.2 fL (80.0-100.0); MEAN PLATELET VOLUME 10.8 fL (7.4-10.4); MONOCYTES 12.2 % (2-11); NEUTROPHILS 54.2 % (40-80); PLATELET COUNT 88 10x3/uL (130-400); RBC 3.22 10x6/uL (4.00-5.40); RDW 14.9 % (11.5-14.5)
[2018-06-07 04:56] LABS: ALBUMIN 2.1 g/dL (3.4-5.0); ALKALINE PHOSPHATASE 69 U/L (46-116); ALT (SGPT) 17 U/L (10-68); BILIRUBIN - TOTAL 0.41 mg/dL (0.2-1.3); CALC OSMOLALITY 276 mosm/kg (275-300); CALCIUM 7.7 mg/dL (8.5-10.1); CARBON DIOXIDE 24.1 mmol/L (21.0-32.0); CHLORIDE - SERUM 109 mmol/L (98-107); CREATININE - SERUM 0.7 mg/dL (0.6-1.3); GLUCOSE 109 mg/dL (74-106); PROTEIN - SERUM 8.1 g/dL (6.4-8.2); SODIUM 140 mmol/L (136-145); UREA NITROGEN 5 mg/dL (7-18); eGFR NON AFRICAN AMERICAN 88 mL/min (90-120)
[2018-06-07 05:40] VITALS: BP 137/91
[2018-06-07 09:01] VITALS: BP 139/84
[2018-06-07 12:18] VITALS: BP 150/87
[2018-06-07 16:06] VITALS: BP 146/81
[2018-06-07 20:12] VITALS: BP 132/85
[2018-06-08 01:03] VITALS: BP 147/86
[2018-06-08 06:00] VITALS: BP 132/82
[2018-06-08 06:18] LABS: BASOPHILS 0.4 % (0-2); HEMATOCRIT 30.8 % (36.0-48.0); HEMOGLOBIN 10.4 g/dL (12-16); IMMATURE GRANULOCYTES 0.4 % (0-5); LYMPHOCYTES 43.1 % (15-50); MCH 31.5 pg (26.0-34.0); MCHC 33.8 g/dL (31.0-37.0); MCV 93.3 fL (80.0-100.0); MONOCYTES 12.8 % (2-11); NEUTROPHILS 41.3 % (40-80); WBC 4.5 10x3/uL (4.8-10.8)
[2018-06-08 06:25] LABS: PLATELET COUNT 107 10x3/uL (130-400)
[2018-06-08 07:37] LABS: ALBUMIN 2.2 g/dL (3.4-5.0); ALKALINE PHOSPHATASE 72 U/L (46-116); ALT (SGPT) 18 U/L (10-68); BILIRUBIN - TOTAL 0.33 mg/dL (0.2-1.3); CALC OSMOLALITY 279 mosm/kg (275-300); CALCIUM 7.9 mg/dL (8.5-10.1); CARBON DIOXIDE 24.6 mmol/L (21.0-32.0); CHLORIDE - SERUM 109 mmol/L (98-107); CREATININE - SERUM 0.7 mg/dL (0.6-1.3); GLUCOSE 106 mg/dL (74-106); POTASSIUM - SERUM 3.2 mmol/L (3.5-5.1); PROTEIN - SERUM 8.5 g/dL (6.4-8.2); SODIUM 142 mmol/L (136-145); UREA NITROGEN 5 mg/dL (7-18); eGFR NON AFRICAN AMERICAN 88 mL/min (90-120)
[2018-06-08 09:00] VITALS: BP 141/81
[2018-06-08] MEDS ORDERED: FEXOFENADINE H180 MG PO (09:42)
[2018-06-08] MEDS ORDERED: FLUTICASONE PRO16 GM NASAL (09:42)
[2018-06-08 11:00] VITALS: BP 142/94
[2018-06-08 15:00] VITALS: BP 140/82
== END 2018-06-08 18:08 | disposition home health service (06) ==
LOC: D.ER 17:56 → D.M2 22:00 → OBSVTIME 22:00 → D.M2 22:00
PROVIDERS: Family Medicine
DX: B20 Human immunodeficiency virus [HIV] disease (principal); J06.9 Acute upper respiratory infection, unspecified; J44.9 Chronic obstructive pulmonary disease, unspecified; R09.82 Postnasal drip; R53.1 Weakness; N39.0 Urinary tract infection, site not specified; H66.92 Otitis media, unspecified, left ear; I10 Essential (primary) hypertension

== ENCOUNTER 2018-11-02 21:04 | Inpatient (IN) | payer MEDICARE, MEDICAID ==
[~2018-11-02] VITALS: Ht 167.6 cm; Wt 69.9 kg
[~2018-11-02 21:04] MED LIST changes: +BIKTARVY; +FEXOFENADINE H180 MG PO; +FLUTICASONE PRO16 GM NASAL; +OMNICEF300 MG PO; +PRINIVIL20 MG PO; +ZITHROMAX500 MG PO
[2018-11-02 21:49] LABS: BASOPHILS 0.1 % (0-2); EOSINOPHILS 0.1 % (0-7); HEMATOCRIT 34.2 % (36.0-48.0); HEMOGLOBIN 11.8 g/dL (12-16); IMMATURE GRANULOCYTES 0.4 % (0-5); LYMPHOCYTES 13.8 % (15-50); MCH 31.1 pg (26.0-34.0); MCHC 34.5 g/dL (31.0-37.0); MCV 90.2 fL (80.0-100.0); MEAN PLATELET VOLUME 10.7 fL (7.4-10.4); NEUTROPHILS 79.6 % (40-80); PLATELET COUNT 108 10x3/uL (130-400); RBC 3.79 10x6/uL (4.00-5.40); RDW 17.3 % (11.5-14.5); WBC 14.6 10x3/uL (4.8-10.8)
[2018-11-02 22:05] LABS: ALBUMIN 2.3 g/dL (3.4-5.0); BILIRUBIN - TOTAL 1.54 mg/dL (0.2-1.3); CALCIUM 8.2 mg/dL (8.5-10.1); CARBON DIOXIDE 24.5 mmol/L (21.0-32.0); CREATININE - SERUM 1.5 mg/dL (0.6-1.3); MAGNESIUM - SERUM 1.6 mg/dL (1.8-2.4); POTASSIUM - SERUM 3.5 mmol/L (3.5-5.1); PROTEIN - SERUM 10.4 g/dL (6.4-8.2)
[2018-11-02 22:38] LABS: AMORPHOUS SEDIMENT <1+ /lpf (NONE SEEN); APPEARANCE HAZY (CLEAR); BACTERIA FEW /hpf (NONE SEEN); BILIRUBIN NEGATIVE (NEGATIVE); COLOR DK YELLOW (YELLOW); EPITHELIAL CELLS 0-5 /hpf (0-5); GLUCOSE NEGATIVE (NEGATIVE); KETONE SMALL mg/dL (NEGATIVE); MUCUS >1+ /lpf (NONE SEEN); NITRITE NEGATIVE (NEGATIVE); PROTEIN NEGATIVE (NEGATIVE); UROBILINOGEN NORMAL (NORMAL); WHITE CELLS - URINE 0-5 /hpf (0-5)
[2018-11-02 23:56] VITALS: BP 142/93; BMI 24.9
[2018-11-03 06:53] VITALS: BP 117/64
[2018-11-03 07:24] VITALS: BP 112/68
[2018-11-03 11:55] VITALS: BP 134/81
[2018-11-03 15:38] LABS: % SATURATION 66 % (15-55); APTT 37.7 SECONDS (22.8-39.4); INR 1.7 (0.85-1.17); IRON 134 ug/dl (35-150); PROTIME 19.4 SECONDS (11.6-15.0); TOTAL IRON BIND CAPACITY 201 ug/dl (260-445); UNSAT IRON BIND CAPACITY 67 ug/dl (150-375)
[2018-11-03 15:41] VITALS: BP 146/90
[2018-11-03 16:36] VITALS: BP 142/67
[2018-11-03 20:08] VITALS: BP 129/70
[2018-11-04 00:30] VITALS: BP 111/67
[2018-11-04 05:26] LABS: BASOPHILS 0.1 % (0-2); EOSINOPHILS 1.7 % (0-7); HEMATOCRIT 29.1 % (36.0-48.0); HEMOGLOBIN 9.8 g/dL (12-16); IMMATURE GRANULOCYTES 0.5 % (0-5); LYMPHOCYTES 19.7 % (15-50); MCH 30.5 pg (26.0-34.0); MCHC 33.7 g/dL (31.0-37.0); MCV 90.7 fL (80.0-100.0); MONOCYTES 12.9 % (2-11); NEUTROPHILS 65.1 % (40-80); PLATELET COUNT 105 10x3/uL (130-400); RBC 3.21 10x6/uL (4.00-5.40); RDW 17.3 % (11.5-14.5)
[2018-11-04 05:28] LABS: WBC 7.8 10x3/uL (4.8-10.8)
[2018-11-04 05:32] LABS: ANION GAP 11.4 mmol/L (8-16); CALCIUM 7.9 mg/dL (8.5-10.1); CARBON DIOXIDE 22.1 mmol/L (21.0-32.0); CREATININE - SERUM 0.9 mg/dL (0.6-1.3); POTASSIUM - SERUM 3.5 mmol/L (3.5-5.1)
[2018-11-04 05:45] VITALS: BP 134/66
[2018-11-04 08:00] VITALS: BP 131/80
[2018-11-04 09:24] LABS: BILIRUBIN - TOTAL 0.81 mg/dL (0.2-1.3)
[2018-11-04 09:25] LABS: ALBUMIN 1.7 g/dL (3.4-5.0)
[2018-11-04 12:00] VITALS: BP 145/92
[2018-11-04 14:36] VITALS: Ht 167.6 cm; Wt 69.9 kg
[2018-11-04 16:00] VITALS: BP 134/78
[2018-11-04 21:00] VITALS: BP 118/61
[2018-11-05 05:45] VITALS: BP 103/61
[2018-11-05 07:19] LABS: BASOPHILS 0.2 % (0-2); EOSINOPHILS 1.6 % (0-7); HEMATOCRIT 27.2 % (36.0-48.0); HEMOGLOBIN 9.3 g/dL (12-16); IMMATURE GRANULOCYTES 0.8 % (0-5); LYMPHOCYTES 27.1 % (15-50); MCH 30.7 pg (26.0-34.0); MCHC 34.2 g/dL (31.0-37.0); MCV 89.8 fL (80.0-100.0); MEAN PLATELET VOLUME 10.9 fL (7.4-10.4); MONOCYTES 14.8 % (2-11); NEUTROPHILS 55.5 % (40-80); PLATELET COUNT 106 10x3/uL (130-400); RBC 3.03 10x6/uL (4.00-5.40); RDW 17.2 % (11.5-14.5)
[2018-11-05 07:42] LABS: ALBUMIN 1.6 g/dL (3.4-5.0); ANION GAP 10.9 mmol/L (8-16); BILIRUBIN - TOTAL 0.82 mg/dL (0.2-1.3); CALCIUM 7.3 mg/dL (8.5-10.1); CARBON DIOXIDE 23.2 mmol/L (21.0-32.0); POTASSIUM - SERUM 3.1 mmol/L (3.5-5.1); PROTEIN - SERUM 7.7 g/dL (6.4-8.2)
[2018-11-05 08:00] LABS: INR 1.43 (0.85-1.17); PROTIME 16.8 SECONDS (11.6-15.0)
[2018-11-05 08:18] VITALS: BP 101/65
[2018-11-05 11:00] LABS: FOLATE (FOLIC ACID) - SERUM 5.4 ng/mL (>3.0)
[2018-11-05 12:48] VITALS: BP 127/82
[2018-11-05 15:29] VITALS: BP 114/70
[2018-11-05 20:00] VITALS: BP 122/62
[2018-11-06] VITALS: BP 133/82
[2018-11-06 04:00] VITALS: BP 136/74; BP 143/57
[2018-11-06 07:42] LABS: BASOPHILS 0.2 % (0-2); EOSINOPHILS 1.7 % (0-7); HEMATOCRIT 29.7 % (36.0-48.0); HEMOGLOBIN 10.2 g/dL (12-16); IMMATURE GRANULOCYTES 0.8 % (0-5); LYMPHOCYTES 27.8 % (15-50); MCH 31.2 pg (26.0-34.0); MCHC 34.3 g/dL (31.0-37.0); MCV 90.8 fL (80.0-100.0); MEAN PLATELET VOLUME 10.9 fL (7.4-10.4); MONOCYTES 13.8 % (2-11); NEUTROPHILS 55.7 % (40-80); PLATELET COUNT 110 10x3/uL (130-400); RBC 3.27 10x6/uL (4.00-5.40); RDW 17.7 % (11.5-14.5); WBC 5.3 10x3/uL (4.8-10.8)
[2018-11-06 08:02] LABS: ANION GAP 9.1 mmol/L (8-16); CALCIUM 7.2 mg/dL (8.5-10.1); CARBON DIOXIDE 24.2 mmol/L (21.0-32.0); CREATININE - SERUM 0.9 mg/dL (0.6-1.3); POTASSIUM - SERUM 3.3 mmol/L (3.5-5.1)
[2018-11-06 09:21] VITALS: BP 130/80
[2018-11-06 11:35] VITALS: BP 126/82
--- NOTE | 2018-11-06 14:39 | EC ---
PATIENT:CARLOS ALBERTO MOORE DATE OF SERVICE: 11/02/18 SEX: F MEDICAL RECORD: [id number] DATE OF : 50 LOCATION:D.M3 D.121 AGE OF PATIENT: 68 ADMISSION DATE: 11/02/18 REFERRING PHYSICIAN: INTERPRETING PHYSICIAN: ANITA KYLE MD ECHOCARDIOGRAM REPORT ECHO CHARGES 4 ECHO COMPLETE Date: 11/03/18 CLINICAL DIAGNOSIS: R/O VEGETATION ECHOCARDIOGRAPHIC MEASUREMENTS (adult normal given) AC root (d.<3.7cm) 3.0 cm LV Septum d (<1.2 cm> 0.8 cm Valve Excursion 1.2 cm LV Septum (systole) 1.0 cm Left Atria (s.<4.0cm> 3.2 cm LVPW d(<1.2cm) 1.0 cm RV (d.<2.3cm) 2.3 cm LVPW (sytole) 1.2 cm LV diastole(<5.6CM) 4.6 cm MV E-F(>70mm/sec) cm LV systole 3.6 cm LVOT Diameter 1.7 cm MV exc.(>10mm) cm Est.ejection fraction (50-75%) % DOPPLER: LVIT cm/sec A 94 cm/sec E 68 cm/sec LA cm/sec RVSP 17.8 mmHg LVOT 131 cm/sec AOP1/2T m/s Asc. Ao 178 cm/sec RVOT 88 cm/sec RA cm/sec PA 97 cm/sec AV Gradient Peak 12.7 mmHg AV Mean 5.9 mmHg AV Area 2.0 cm MV Gradient Peak 5.2 mmHg MV Mean 2.7 mmHg MV Area cm COMMENTS: Circular Knife Machine Cutter: Amy BANERJEE High Worker: 1 Dr. Kyle TAPE# PACS Pericardial Effusion N DATE OF SERVICE: 11/03/2018 FINDINGS: 1. Left ventricular chamber size is within normal limits. Left ventricular systolic function is normal. Overall ejection fraction is estimated at 55%. 2. Left atrium, right atrium, and right ventricular chamber sizes are within normal limit. 3. Valvular structures: Aortic valve has possible vegetation on the right coronary cusp. The remaining valvular structures are within normal limit. 4. Doppler interrogation reveals no significant valvular insufficiency or ECHOCARDIOGRAM REPORT [id number] CARLOS ALBERTO MOORE stenosis. Pulmonary systolic pressure is estimated at 18 mmHg. 5. No evidence of pericardial effusion or left ventricular thrombus. 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 Transesophageal echo would better delineate this. TRANSINT:[id number] Voice Confirmation ID: [id number] DOCUMENT ID: [id number] ANITA KYLE MD at 1439 CC: [id number] DICTATION DATE: 11/04/18 0904 TECHNICAL TRAINING INSTRUCTOR: 11/04/18 1504 ADM IN [facility] [address] [place] [address]
[2018-11-06 15:53] VITALS: BP 122/72
[2018-11-06 20:30] VITALS: BP 141/76
[2018-11-07 00:54] VITALS: BP 116/48
[2018-11-07 04:50] VITALS: BP 114/64
[2018-11-07 06:47] LABS: BASOPHILS 0.2 % (0-2); EOSINOPHILS 1.8 % (0-7); HEMATOCRIT 26.9 % (36.0-48.0); IMMATURE GRANULOCYTES 0.4 % (0-5); LYMPHOCYTES 25.8 % (15-50); MCH 30.3 pg (26.0-34.0); MCHC 33.5 g/dL (31.0-37.0); MCV 90.6 fL (80.0-100.0); MEAN PLATELET VOLUME 10.6 fL (7.4-10.4); MONOCYTES 11.5 % (2-11); NEUTROPHILS 60.3 % (40-80); PLATELET COUNT 132 10x3/uL (130-400); RBC 2.97 10x6/uL (4.00-5.40); RDW 17.8 % (11.5-14.5); WBC 4.5 10x3/uL (4.8-10.8)
[2018-11-07 07:07] LABS: CALC OSMOLALITY 271 mosm/kg (275-300); CALCIUM 7.2 mg/dL (8.5-10.1); CARBON DIOXIDE 21.3 mmol/L (21.0-32.0); CHLORIDE - SERUM 107 mmol/L (98-107); CREATININE - SERUM 0.8 mg/dL (0.6-1.3); GLUCOSE 111 mg/dL (74-106); POTASSIUM - SERUM 3.6 mmol/L (3.5-5.1); SODIUM 136 mmol/L (136-145); UREA NITROGEN 9 mg/dL (7-18); eGFR NON AFRICAN AMERICAN 75 mL/min (90-120)
[2018-11-07 08:11] VITALS: BP 133/82
[2018-11-07 12:09] VITALS: BP 121/75
[2018-11-07 14:00] VITALS: BP 143/86
[2018-11-07 20:47] VITALS: BP 128/72
[2018-11-08 00:52] VITALS: BP 139/89
[2018-11-08 05:08] VITALS: BP 129/79
[2018-11-08 06:55] LABS: CALC OSMOLALITY 275 mosm/kg (275-300); CALCIUM 7.1 mg/dL (8.5-10.1); CARBON DIOXIDE 21.5 mmol/L (21.0-32.0); CHLORIDE - SERUM 109 mmol/L (98-107); CREATININE - SERUM 0.8 mg/dL (0.6-1.3); GLUCOSE 103 mg/dL (74-106); POTASSIUM - SERUM 3.3 mmol/L (3.5-5.1); SODIUM 139 mmol/L (136-145); eGFR NON AFRICAN AMERICAN 75 mL/min (90-120)
[2018-11-08 06:56] LABS: UREA NITROGEN 6 mg/dL (7-18)
[2018-11-08 07:08] LABS: BASOPHILS 0.5 % (0-2); EOSINOPHILS 2.5 % (0-7); HEMATOCRIT 27.9 % (36.0-48.0); HEMOGLOBIN 9.4 g/dL (12-16); IMMATURE GRANULOCYTES 0.2 % (0-5); LYMPHOCYTES 25.5 % (15-50); MCH 30.5 pg (26.0-34.0); MCHC 33.7 g/dL (31.0-37.0); MCV 90.6 fL (80.0-100.0); MEAN PLATELET VOLUME 10.8 fL (7.4-10.4); MONOCYTES 10.6 % (2-11); NEUTROPHILS 60.7 % (40-80); RBC 3.08 10x6/uL (4.00-5.40); RDW 18.2 % (11.5-14.5); WBC 4.4 10x3/uL (4.8-10.8)
[2018-11-08 07:10] LABS: PLATELET COUNT 177 10x3/uL (130-400)
[2018-11-08 08:46] VITALS: BP 126/79
--- NOTE | 2018-11-08 09:50 | MORECARE ---
CASE MANAGEMENT DISCHARGE SUMMARY PATIENT: CARLOS ALBERTO MOORE UNIT: [id number] ADM DATE: 11/02/18 AGE: 68 : 50 SEX: F ROOM/BED: D.1211 AUTHOR: CHANELL,DOC PHYSICIAN: REFERRING PHYSICIAN: GIOVANY GARCÍA MD DATE OF SERVICE: 11/08/18 Discharge Plan Patient Name: CARLOS ALBERTO MOORE Facility: [facility]:[place] : 1950 Planned Disposition: Home Anticipated Discharge Date: 11/09/18 Discharge Date: Expected LOS: 7 Initial Reviewer: [email or web address] Initial Review Date: 11/08/2018 Generated: 11/08/18 10:49 am DCP- Discharge Planning Updated by [email or web address]: Morenita Diggs on 11/04/18 6:[address] CM ATTEMPTED TO VISIT X2 TODAY. PATIENT WAS PREPARING TO GO FOR CAT SCAN THIS AM. VISITOR AT THE BEDSIDE ON PATIENT'S RETURN. PHYSICAL THERAPY AMBULATED APTIENT IN THE [place]. DIETITIAN VISITED FOR NUTRITIONAL ASSESSMENT. ATTEMPTED TO REVISIT THIS PM DR GUARDADO VISITED. INITIAL ASSESSMENT FOR DISCHARGE PLANNING PENDING. DCPIA - Discharge Planning Initial Assessment Updated by [email or web address]: Luna Harrell on 11/08/18 9:48 am * Is the patient Alert and Oriented? Yes * How many steps to enter\exit or inside your home? RAMP * PCP DR. MARTA BOYKIN IN [place] * Pharmacy [facility] ON [facility] * Preadmission Environment Home with Family * ADLs Independent * Equipment Bedside Commode Cane Glucometer Nebulizer Walker * List name and contact numbers for known caregivers / representatives who currently or will assist patient after discharge: CARRIE SARAVIA (FRIEND) [phone] * Verbal permission to speak to the caregivers and representatives has been obtained from the patient. Yes * Community resources currently utilized None * Additional services required to return to the preadmission environment? Yes * Can the patient safely return to the preadmission environment? Yes * Has this patient been hospitalized within the prior 30 days at any hospital? No Coverage Notice Reviewer: [id number] - Luna Harrell Notice Issued Date-Time: 11/08/2018 9:02 Notice Type: Patient Choice Letter Notice Delivered To: Patient Relationship to Patient: Emergency Room Tech Name: Delivery Method: HAND - Hand Delivered Dora Days: Prior Verbal Notification: Recipient Understood Notice: Yes Recipient Signature: Yes Med Rec Note Co-signed by Attending: Coverage Notice Comment: PATIENT REFUSED HOME HEALTH (FORM SIGNED AND FILED) Reviewer: [id number] Ansley Harrell Notice Issued Date-Time: 11/08/2018 9:02 Notice Type: IM Discharge Notice Notice Delivered To: Patient Relationship to Patient: Emergency Room Tech Name: Delivery Method: HAND - Hand Delivered Dora Days:2 Prior Verbal Notification: Recipient Understood Notice: Yes Recipient Signature: Yes Med Rec Note Co-signed by Attending: Coverage Notice Comment: D/C IMM NOTICE SERVED TODAY Patient Name: CARLOS ALBERTO MOORE Page 48310 at 0950 All edits/amendments must be made on the electronic document DICTATION DATE: 11/08/18948 BOATHOUSE KEEPER: NIELS 11/08/1849 RPT#: [id number] DC DATE: STATUS: ADM IN [facility] [address] [place] [address] END OF REPORT
--- NOTE | 2018-11-08 09:58 | MORECARE ---
CASE MANAGEMENT DISCHARGE SUMMARY PATIENT: CARLOS ALBERTO MOORE UNIT: [id number] ADM DATE: 11/02/18 AGE: 68 : 50 SEX: F ROOM/BED: D.1211 AUTHOR: CHANELL,DOC PHYSICIAN: REFERRING PHYSICIAN: GIOVANY GARCÍA MD DATE OF SERVICE: 11/08/18 Discharge Plan Patient Name: CARLOS ALBERTO MOORE Facility: [facility]:[place] : 1950 Planned Disposition: Home Anticipated Discharge Date: 11/09/18 Discharge Date: Expected LOS: 7 Initial Reviewer: [email or web address] Initial Review Date: 11/08/2018 Generated: 11/08/18 10:58 am Comments DCP- Discharge Planning Updated by [email or web address]: Luna Harrell on 11/08/18 8:[address] Patient Name: CARLOS ALBERTO MOORE Admission Status: ER Accout number: [id number] Admission Date: 11-02-2018 : 1950 Admission Diagnosis: Attending: GIOVANY GARCÍA Current LOS: 6 Anticipated DC Date: 11-09-2018 Planned Disposition: Home Primary Insurance: [employer] ADV Discharge Planning Comments: CM MET WITH PATIENT REGARDING D/C NEEDS AND PLANS. PATIENT STATED HER FRIEND (CARRIE SARAVIA) WILL DRIVE HER HOME AT DISCHARGE. PATIENT STATES SHE HAS A RAMP TO ENTER HER HOME AND NO STAIRS INSIDE. PATIENT STATED SHE IS INDEPENDENT WITH HER CARE AND HAS A WALKER, BS COMMODE, GLUCOMETER, CANE, AND NEBULIZER AT HOME IF NEEDED. PATIENTS PCP IS DR. MARTA BOYKIN IN [place] AND PHARMACY IS [facility] ON [facility]. PATIENT REFUSED HOME HEALTH AND THE REFUSAL FORM WAS SIGNED. CM WILL CONTINUE TO FOLLOW PATIENT WITH D/C NEEDS AND PLANS. PCP DR. MARTA BOYKIN ([place]) [facility] ON [address] [facility] CARRIE SARAVIA (FRIEND) [phone] Protection Agent: Luna Harrell DCP- Discharge Planning Updated by [email or web address]: Morenita Diggs on 11/04/18 6:[address] CM ATTEMPTED TO VISIT X2 TODAY. PATIENT WAS PREPARING TO GO FOR CAT SCAN THIS AM. VISITOR AT THE BEDSIDE ON PATIENT'S RETURN. PHYSICAL THERAPY AMBULATED APTIENT IN THE MERL[place]. DIETITIAN VISITED FOR NUTRITIONAL ASSESSMENT. ATTEMPTED TO REVISIT THIS PM DR GUARDADO VISITED. INITIAL ASSESSMENT FOR DISCHARGE PLANNING PENDING. DCPIA - Discharge Planning Initial Assessment Updated by [email or web address]: Luna Harrell on 11/08/18 9:48 am * Is the patient Alert and Oriented? Yes * How many steps to enter\exit or inside your home? RAMP * PCP DR. MARTA BOYKIN IN [place] * Pharmacy [facility] ON [address] [facility] * Preadmission Environment Home with Family * ADLs Independent * Equipment Bedside Commode Cane Glucometer Nebulizer Walker * List name and contact numbers for known caregivers / representatives who currently or will assist patient after discharge: CARRIE SARAVIA (FRIEND) [phone] * Verbal permission to speak to the caregivers and representatives has been obtained from the patient. Yes * Community resources currently utilized None * Additional services required to return to the preadmission environment? Yes * Can the patient safely return to the preadmission environment? Yes * Has this patient been hospitalized within the prior 30 days at any hospital? No Coverage Notice Reviewer: [id number] Ansley Harrell Notice Issued Date-Time: 11/08/2018 9:02 Notice Type: Patient Choice Letter Notice Delivered To: Patient Relationship to Patient: Plastic Boat Buffer Name: Delivery Method: HAND - Hand Delivered Dora Days: Prior Verbal Notification: Recipient Understood Notice: Yes Recipient Signature: Yes Med Rec Note Co-signed by Attending: Coverage Notice Comment: PATIENT REFUSED HOME HEALTH (FORM SIGNED AND FILED) Reviewer: [email or web address] Ansley Harrell Notice Issued Date-Time: 11/08/2018 9:02 Notice Type: IM Discharge Notice Notice Delivered To: Patient Relationship to Patient: Plastic Boat Buffer Name: Delivery Method: HAND - Hand Delivered Dora Days:2 Prior Verbal Notification: Recipient Understood Notice: Yes Recipient Signature: Yes Med Rec Note Co-signed by Attending: Coverage Notice Comment: D/C IMM NOTICE SERVED TODAY Last DP export: 11/08/18 8:49 a Patient Name: CARLOS ALBERTO MOORE Page 17281 at 0958 All edits/amendments must be made on the electronic document DICTATION DATE: 11/08/18956 MANAGER ASSET MANAGEMENT: NIELS 11/08/18956 RPT#: [id number] DC DATE: STATUS: ADM IN [facility] [address] [place] [address] END OF REPORT
[2018-11-08 15:11] LABS: SPE - A/G RATIO 0.4 (0.7-1.7); SPE - ALPHA-1 GLOBULIN 0.3 g/dL (0.0-0.4); SPE - ALPHA-2 GLOBULIN 0.7 g/dL (0.4-1.0); SPE - BETA GLOBULIN 0.7 g/dL (0.7-1.3); SPE - GAMMA GLOBULIN 3.6 g/dL (0.4-1.8); SPE - M-SPIKE Not Observed g/dL (Not Observed); SPE - TOTAL PROTEIN 7.3 g/dL (6.0-8.5)
[2018-11-08 16:35] VITALS: BP 111/84
[2018-11-08 20:21] VITALS: BP 134/82
[2018-11-09 03:30] VITALS: BP 137/50
[2018-11-09 07:08] LABS: BASOPHILS 0.2 % (0-2); HEMATOCRIT 25.6 % (36.0-48.0); HEMOGLOBIN 8.7 g/dL (12-16); IMMATURE GRANULOCYTES 0.7 % (0-5); LYMPHOCYTES 29.5 % (15-50); MCH 30.7 pg (26.0-34.0); MCV 90.5 fL (80.0-100.0); MEAN PLATELET VOLUME 10.2 fL (7.4-10.4); MONOCYTES 10.8 % (2-11); NEUTROPHILS 56.8 % (40-80); RBC 2.83 10x6/uL (4.00-5.40); RDW 18.5 % (11.5-14.5); WBC 4.6 10x3/uL (4.8-10.8)
[2018-11-09 07:10] LABS: PLATELET COUNT 216 10x3/uL (130-400)
[2018-11-09 07:41] LABS: ALBUMIN 1.6 g/dL (3.4-5.0); ALKALINE PHOSPHATASE 93 U/L (46-116); ALT (SGPT) 45 U/L (10-68); BILIRUBIN - TOTAL 0.41 mg/dL (0.2-1.3); CALC OSMOLALITY 278 mosm/kg (275-300); CALCIUM 7.2 mg/dL (8.5-10.1); CARBON DIOXIDE 22.5 mmol/L (21.0-32.0); CHLORIDE - SERUM 111 mmol/L (98-107); CREATININE - SERUM 0.7 mg/dL (0.6-1.3); GLUCOSE 73 mg/dL (74-106); POTASSIUM - SERUM 3.5 mmol/L (3.5-5.1); PROTEIN - SERUM 7.7 g/dL (6.4-8.2); SODIUM 142 mmol/L (136-145); UREA NITROGEN 5 mg/dL (7-18); eGFR NON AFRICAN AMERICAN 88 mL/min (90-120)
[2018-11-09 08:00] VITALS: BP 145/87
[2018-11-09 12:43] VITALS: BP 135/84
[2018-11-09] MEDS ORDERED: FLORAJEN3 CAPS460 MG PO (14:05)
[2018-11-09] MEDS ORDERED: LEVAQUIN750 MG PO (14:05)
[2018-11-09] MEDS ORDERED: PROTONIX40 MG PO (14:06)
[2018-11-09] MEDS ORDERED: NON-FORMULARY PO (14:06)
--- NOTE | 2018-11-11 12:53 | MORECARE ---
CASE MANAGEMENT DISCHARGE SUMMARY PATIENT: CARLOS ALBERTO MOORE UNIT: [id number] ADM DATE: 11/02/18 AGE: 68 : 50 SEX: F ROOM/BED: D.1211 AUTHOR: CHANELL,DOC PHYSICIAN: REFERRING PHYSICIAN: GIOVANY GARCÍA MD DATE OF SERVICE: 11/11/18 Discharge Plan Patient Name: CARLOS ALBERTO MOORE Facility: [facility]:[place] : 1950 Planned Disposition: Home Anticipated Discharge Date: 11/09/18 Discharge Date: 11/09/2018 Expected LOS: 7 Initial Reviewer: [email or web address] Initial Review Date: 11/08/2018 Generated: 11/11/18 1:52 pm DCP- Discharge Planning Updated by [email or web address]: Luna Harrell on 11/08/18 8:[address] Patient Name: CARLOS ALBERTO MOORE Admission Status: ER Accout number: [id number] Admission Date: 11-02-2018 : 1950 Admission Diagnosis: Attending: GIOVANY GARCÍA Current LOS: 6 Anticipated DC Date: 11-09-2018 Planned Disposition: Home Primary Insurance: WE[employer] MEDICARE ADV Discharge Planning Comments: CM MET WITH PATIENT REGARDING D/C NEEDS AND PLANS. PATIENT STATED HER FRIEND (CARRIE SARAVIA) WILL DRIVE HER HOME AT DISCHARGE. PATIENT STATES SHE HAS A RAMP TO ENTER HER HOME AND NO STAIRS INSIDE. PATIENT STATED SHE IS INDEPENDENT WITH HER CARE AND HAS A WALKER, BS COMMODE, GLUCOMETER, CANE, AND NEBULIZER AT HOME IF NEEDED. PATIENTS PCP IS DR. MARTA BOYKIN IN [place] AND PHARMACY IS [facility] ON [facility] [facility]. PATIENT REFUSED HOME HEALTH AND THE REFUSAL FORM WAS SIGNED. CM WILL CONTINUE TO FOLLOW PATIENT WITH D/C NEEDS AND PLANS. PCP DR. MARTA BOYKIN ([place]) [facility] ON [address] [facility] CARRIE SARAVIA (FRIEND) [phone] Account Consultant: Luna Harrell DCP- Discharge Planning Updated by [email or web address]: Morenita Diggs on 11/04/18 6:[address] CM ATTEMPTED TO VISIT X2 TODAY. PATIENT WAS PREPARING TO GO FOR CAT SCAN THIS AM. VISITOR AT THE BEDSIDE ON PATIENT'S RETURN. PHYSICAL THERAPY AMBULATED APTIENT IN THE MERL[place]. DIETITIAN VISITED FOR NUTRITIONAL ASSESSMENT. ATTEMPTED TO REVISIT THIS PM DR GUARDADO VISITED. INITIAL ASSESSMENT FOR DISCHARGE PLANNING PENDING. DCPIA - Discharge Planning Initial Assessment Updated by [email or web address]: Luna Harrell on 11/08/18 9:48 am * Is the patient Alert and Oriented? Yes * How many steps to enter\exit or inside your home? RAMP * PCP DR. MARTA BOYKIN IN [place] * Pharmacy [facility] ON [facility] [facility] * Preadmission Environment Home with Family * ADLs Independent * Equipment Bedside Commode Cane Glucometer Nebulizer Walker * List name and contact numbers for known caregivers / representatives who currently or will assist patient after discharge: CARRIE SARAVIA (FRIEND) [phone] * Verbal permission to speak to the caregivers and representatives has been obtained from the patient. Yes * Community resources currently utilized None * Additional services required to return to the preadmission environment? Yes * Can the patient safely return to the preadmission environment? Yes * Has this patient been hospitalized within the prior 30 days at any hospital? No Coverage Notice Reviewer: [email or web address] Harrell Notice Issued Date-Time: 11/08/2018 9:02 Notice Type: Patient Choice Letter Notice Delivered To: Patient Relationship to Patient: Hris Analyst Name: Delivery Method: HAND - Hand Delivered Dora Days: Prior Verbal Notification: Recipient Understood Notice: Yes Recipient Signature: Yes Med Rec Note Co-signed by Attending: Coverage Notice Comment: PATIENT REFUSED HOME HEALTH (FORM SIGNED AND FILED) Reviewer: [id number] Ansley Harrell Notice Issued Date-Time: 11/08/2018 9:02 Notice Type: IM Discharge Notice Notice Delivered To: Patient Relationship to Patient: Hris Analyst Name: Delivery Method: HAND - Hand Delivered Dora Days:2 Prior Verbal Notification: Recipient Understood Notice: Yes Recipient Signature: Yes Med Rec Note Co-signed by Attending: Coverage Notice Comment: D/C IMM NOTICE SERVED TODAY Last DP export: 11/08/18 8:58 a Patient Name: CARLOS ALBERTO MOORE Page 00351 at 1253 All edits/amendments must be made on the electronic document DICTATION DATE: 11/11/18 1252 CAREER SPECIALIST: NIELS 11/11/18 1252 RPT#: [id number] DC DATE:11/09/18 STATUS: DIS IN [facility] [address] [facility] [place] [address] END OF REPORT
== END 2018-11-09 17:30 | disposition home or self-care (01) | DRG 975 ==
LOC: D.ER 21:04 → D.M3 22:56
PROVIDERS: Emergency Medicine; Family Medicine; Internal Medicine Medical Oncology; ADMIT Internal Medicine Nephrology; ATTEND Internal Medicine Nephrology
DX: B20 Human immunodeficiency virus [HIV] disease (principal); A41.9 Sepsis, unspecified organism; N39.0 Urinary tract infection, site not specified; N17.9 Acute kidney failure, unspecified; E87.1 Hypo-osmolality and hyponatremia; K92.1 Melena; B96.89 Other specified bacterial agents as the cause of diseases classified elsewhere; Z16.19 Resistance to other specified beta lactam antibiotics; D50.9 Iron deficiency anemia, unspecified; I10 Essential (primary) hypertension; E11.9 Type 2 diabetes mellitus without complications; E83.42 Hypomagnesemia; D69.6 Thrombocytopenia, unspecified

== ENCOUNTER 2020-01-03 20:00 | Inpatient (IN) | payer OTHER, MEDICAID ==
[~2020-01-03] VITALS: Ht 167.6 cm; Wt 69.1 kg
[~2020-01-03 20:00] MED LIST changes: +FLORAJEN3 CAPS460 MG PO; +LEVAQUIN750 MG PO; +NON-FORMULARY PO
[2020-01-03 20:22] LABS: BASOPHILS 0.2 % (0-2); EOSINOPHILS 2.4 % (0-7); HEMATOCRIT 36.6 % (36.0-48.0); HEMOGLOBIN 11.9 g/dL (12-16); IMMATURE GRANULOCYTES 0.2 % (0-5); LYMPHOCYTES 47.9 % (15-50); MCH 30.8 pg (26.0-34.0); MCHC 32.5 g/dL (31.0-37.0); MCV 94.8 fL (80.0-100.0); MEAN PLATELET VOLUME 10.9 fL (7.4-10.4); NEUTROPHILS 38.3 % (40-80); RBC 3.86 10x6/uL (4.00-5.40); RDW 14.8 % (11.5-14.5)
[2020-01-03 20:24] LABS: PLATELET COUNT 131 10x3/uL (130-400)
[2020-01-03 20:25] LABS: BILIRUBIN NEGATIVE (NEGATIVE); GLUCOSE NEGATIVE (NEGATIVE); KETONE NEGATIVE (NEGATIVE); NITRITE POSITIVE (NEGATIVE); UROBILINOGEN NORMAL (NORMAL)
--- NOTE | 2020-01-03 20:30 | NUR ---
PT HAD SOME RAISED BUMPS/WHELPS AROUND IV SITE AFTER MORPHINE IV WAS GIVEN. DENIES ITCHING.
[2020-01-03 20:33] LABS: BACTERIA MANY /hpf (NEGATIVE); EPITHELIAL CELLS OCC /hpf (0-5); WHITE CELLS - URINE >50 /hpf (NEGATIVE)
[2020-01-03 20:53] LABS: ANION GAP 6.1 mmol/L (8-16); CALCIUM 8.4 mg/dL (8.5-10.1); CARBON DIOXIDE 30.1 mmol/L (21.0-32.0); CREATININE - SERUM 1.4 mg/dL (0.6-1.3); POTASSIUM - SERUM 4.2 mmol/L (3.5-5.1)
[2020-01-03 20:58] LABS: BILIRUBIN - TOTAL 0.47 mg/dL (0.2-1.3); PROTEIN - SERUM 10.3 g/dL (6.4-8.2)
--- NOTE | 2020-01-03 21:19 | NUR ---
PT BACK FROM CT- STATES SOME BETTER BUT NOT MUCH WHEN IT COMES TO PAIN. STATES NAUSEA IS BETTER. IV FLUID CON'T AT BOLUS. WHELPS HAVE RESOLVED. BANDAR CORONADO MADE AWARE.
--- NOTE | 2020-01-03 22:12 | NUR ---
INCONTINENT OF URINE. PT CLEANSED AND DIAPER CHANGED. CALL LIGHT WITHIN REACH.
[2020-01-03] MEDS ORDERED: GABAPENTIN100 MG PO (22:23)
[2020-01-03] MEDS ORDERED: CELEXA20 MG PO (22:23)
[2020-01-03] MEDS ORDERED: BIKTARVY 50-201 EACH PO (22:23)
[2020-01-03] MEDS ORDERED: LISINOPRIL20 MG PO (22:23)
[2020-01-04] MEDS ORDERED: OXYCONTIN15 MG PO (01:19)
[2020-01-04] MEDS ORDERED: GABAPENTIN100 MG PO (01:20)
[2020-01-04] MEDS ORDERED: BACITRACIN3.5 GM (01:22)
[2020-01-04 01:41] VITALS: BP 134/93; BMI 24.4
--- NOTE | 2020-01-04 01:49 | NUR ---
RECEIVED REPORT FROM LAURA VELASCO IN ER. ARRIVED TO FLOOR ON STRETCHER. ABLE TO TRANSFER SELF TO BED. ALERT ADN ORIENTED X4. WEARING A BRIEF D/T URGENCY FEELING AND FREQUENCY. ALSO STATED THAT IT MAJANO WHEN SHE URINATES. IV TO RT FA WITH ABT INFUSING AT THIS TIME. REQUESTED SOMETHING TO EAT. GAVE SANDWICH BOX AND WATER. DENIES ANY OTHER NEEDS. ASSESSMENT COMPLETED.
[2020-01-04 04:30] VITALS: BP 102/63
[2020-01-04 09:00] VITALS: BP 117/66
--- NOTE | 2020-01-04 12:22 | NUR ---
RECEIVED LAYING IN BED TALKING ON TELEPHONE. ALERT AND ORIENTED X4. UP AD CIELO TO B/R. CONT TO WEAR PULL UPS. IV TO RT FA WITH NS INFUSING AT 100CC/HR. NO REDNESS OR SWELLING TO SITE. TELEMETRY IN PLACE. DENIES ANY NEEDS AT THIS TIME.
[2020-01-04 13:47] VITALS: BP 135/79
[2020-01-04 13:52] LABS: INR 1.41 (0.85-1.17); PROTIME 17.2 SECONDS (11.6-15.0)
[2020-01-04 13:53] LABS: APTT 34.8 SECONDS (22.8-39.4)
--- NOTE | 2020-01-04 17:48 | NUR ---
PT CONTINUES TO HAVE INTERMITENT INCONTINENCE THROUGHOUT THIS SHIFT. CONTINUES ON IV ANTIBIOTICS NO ACUTE ISSUES WILL CONTINUE TO MONITOR.
[2020-01-04 18:07] VITALS: BP 123/80
[2020-01-04 20:00] VITALS: BP 133/78
[2020-01-05] VITALS: BP 125/69
[2020-01-05 04:00] VITALS: BP 144/78
[2020-01-05 06:34] LABS: BASOPHILS 0.6 % (0-2); EOSINOPHILS 2.5 % (0-7); HEMATOCRIT 31.6 % (36.0-48.0); HEMOGLOBIN 10.2 g/dL (12-16); IMMATURE GRANULOCYTES 0.3 % (0-5); LYMPHOCYTES 44.8 % (15-50); MCH 30.7 pg (26.0-34.0); MCHC 32.3 g/dL (31.0-37.0); MCV 95.2 fL (80.0-100.0); MEAN PLATELET VOLUME 10.7 fL (7.4-10.4); MONOCYTES 15.6 % (2-11); NEUTROPHILS 36.2 % (40-80); PLATELET COUNT 116 10x3/uL (130-400); RBC 3.32 10x6/uL (4.00-5.40); RDW 14.5 % (11.5-14.5)
[2020-01-05 06:35] LABS: WBC 3.2 10x3/uL (4.8-10.8)
[2020-01-05 06:54] LABS: ALBUMIN 2.5 g/dL (3.4-5.0); BILIRUBIN - TOTAL 0.65 mg/dL (0.2-1.3); CALCIUM 7.7 mg/dL (8.5-10.1); CREATININE - SERUM 1.1 mg/dL (0.6-1.3); MAGNESIUM - SERUM 1.8 mg/dL (1.8-2.4); PROTEIN - SERUM 8.6 g/dL (6.4-8.2); VANCOMYCIN - RANDOM 7.7 ug/mL (10.0-20.0)
--- NOTE | 2020-01-05 07:53 | NUR ---
PT PLACED ON CONTACT ISOLATION FOR ESBL IN THE URINE.
--- NOTE | 2020-01-05 09:01 | NUR ---
AM MEDS GIVEN AT THIS TIME. PT IN BED, EATING BREAKFAST. PT A/O X4, RESP EVEN AND NONLABORED ON RA. RT FA IV SL. PT DENIES ANY NEEDS AT THIS TIME. CALL LIGHT IN REACH, NAD NOTED, WILL CONTINUE TO MONITOR.
[2020-01-05 09:35] VITALS: BP 113/78
--- NOTE | 2020-01-05 10:59 | NUR ---
BLOOD SUGAR OF 165, PT REFUSED TO GET ANY INSULIN AT THIS TIME. WANTS TO WAIT TO SEE WHAT IT WILL BE LATER TODAY. PT RESTING COMFORTABLY IN BED, DENIES ANY NEEDS AT THIS TIME. CALL LIGHT IN REACH, NAD NOTED, WILL CONTINUE TO MONITOR.
[2020-01-05 14:07] VITALS: Ht 167.6 cm; Wt 69.1 kg
[2020-01-05 14:33] VITALS: BP 126/71
[2020-01-05 15:50] LABS: UDS - AMPHET NEGATIVE QUAL (NEGATIVE); UDS - BARB NEGATIVE QUAL (NEGATIVE); UDS - BENZO NEGATIVE QUAL (NEGATIVE); UDS - COCAINE NEGATIVE QUAL (NEGATIVE); UDS - OPIATE NEGATIVE QUAL (NEGATIVE); UDS - PCP NEGATIVE QUAL (NEGATIVE); UDS - THC NEGATIVE QUAL (NEGATIVE)
--- NOTE | 2020-01-05 16:03 | NUR ---
BLOOD SUGAR OF 127, NO COVERAGE NEEDED PER S/S. PT DENIES ANY NEEDS AT THIS TIME. CALL LIGHT IN REACH, NAD NOTED, WILL CONTINUE TO MONITOR.
--- NOTE | 2020-01-05 19:00 | NUR ---
REPORT RECEIVED, WILL CONTINUE POC. PATIENT IS AAOX4, LYING IN SEMI-FOWLERS POSITION. NO S/S OF DISTRESS OBSERVED, RR EVEN AND UNLABORED ON ROOM AIR. PATIENT DENIES NEEDS AT THIS TIME. CL IN REACH, BED LOCKED AND LOWERED. CONTACT PRECAUTIONS MAINTAINED. WILL CTM.
[2020-01-05 20:00] VITALS: BP 134/93
--- NOTE | 2020-01-05 21:43 | NUR ---
PT C/O BACK PAIN. NO PAIN MEDS ORDERED. PAGED LUIS ANTONIO MEDEROS, ELEMENTARY SCHOOL SOCIAL WORKER ORDERS RECEIVED TO RESTART HOME MED OXYCODONE 5MG Q6PRN. ALSO TO D/C VANC AND MERREM AND TO START LEVAQUIN 500MG.
[2020-01-06] VITALS: BP 151/89
[2020-01-06 04:00] VITALS: BP 130/82
[2020-01-06 06:41] LABS: HEMOGLOBIN 10.4 g/dL (12-16); MCH 31.4 pg (26.0-34.0); MCHC 33.5 g/dL (31.0-37.0); MCV 93.7 fL (80.0-100.0); MEAN PLATELET VOLUME 10.1 fL (7.4-10.4); PLATELET COUNT 119 10x3/uL (130-400); RBC 3.31 10x6/uL (4.00-5.40)
[2020-01-06 07:01] LABS: ALBUMIN 2.4 g/dL (3.4-5.0); ANION GAP 7.6 mmol/L (8-16); BILIRUBIN - TOTAL 0.4 mg/dL (0.2-1.3); CALCIUM 8.2 mg/dL (8.5-10.1); CARBON DIOXIDE 28.1 mmol/L (21.0-32.0); MAGNESIUM - SERUM 1.8 mg/dL (1.8-2.4); POTASSIUM - SERUM 3.7 mmol/L (3.5-5.1); PROTEIN - SERUM 8.9 g/dL (6.4-8.2)
--- NOTE | 2020-01-06 07:10 | NUR ---
PT LYING IN BED. RESTING QUIETLY. PT STATES SHE HAS NO FURTHER NEEDS AT THIS TIME. BED LOW. CL IN REACH.
[2020-01-06 09:24] VITALS: BP 143/84
--- NOTE | 2020-01-06 10:33 | NUR ---
I have reviewed this patient and I concur with the Shift Assessment completed by the Licensed Practical Nurse today this shift.
[2020-01-06 10:44] LABS: ANISOCYTOSIS OCC; EOSINOPHILS 3 % (0-7); LYMPHOCYTES 45 % (15-50); MONOCYTES 11 % (2-11); NEUTROPHILS 41 % (40-80)
[2020-01-06 10:45] LABS: PLATELET ESTIMATE DECREASED; SMUDGE CELLS OCC
[2020-01-06 11:00] VITALS: BP 114/71
--- NOTE | 2020-01-06 12:00 | NUR ---
PT SITTING IN RECLINER CHAIR. PT STATES SHE HAS NO FURTHER NEEDS AT THIS TIME. CL IN REACH.
[2020-01-06 15:00] VITALS: BP 109/73
--- NOTE | 2020-01-06 15:03 | EC ---
PATIENT:CARLOS ALBERTO MOORE DATE OF SERVICE: 01/03/20 SEX: F MEDICAL RECORD: [id number] DATE OF : [birth year] LOCATION:D.M2 D.210 AGE OF PATIENT: 69 ADMISSION DATE: 01/03/20 REFERRING PHYSICIAN: INTERPRETING PHYSICIAN: JESSICA MARR MD ECHOCARDIOGRAM REPORT ECHO CHARGES 4 ECHO COMPLETE Date: 01/05/20 CLINICAL DIAGNOSIS: SEPSIS ECHOCARDIOGRAPHIC MEASUREMENTS (adult normal given) AC root (d.<3.7cm) 2.5 cm LV Septum d (<1.2 cm> 0.7 cm Valve Excursion 1.2 cm LV Septum (systole) 0.8 cm Left Atria (s.<4.0cm> 3.6 cm LVPW d(<1.2cm) 0.7 cm RV (d.<2.3cm) 2.2 cm LVPW (sytole) 0.9 cm LV diastole(<5.6CM) 3.9 cm MV E-F(>70mm/sec) cm LV systole 2.8 cm LVOT Diameter 1.7 cm MV exc.(>10mm) cm Est.ejection fraction (50-75%) % DOPPLER: LVIT cm/sec A 92 cm/sec E 84 cm/sec LA cm/sec RVSP 15.6 mmHg LVOT 111 cm/sec AOP1/2T m/s Asc. Ao 127 cm/sec RVOT 47 cm/sec RA cm/sec PA 68 cm/sec AV Gradient Peak 6.4 mmHg AV Mean 3.4 mmHg AV Area 2.0 cm MV Gradient Peak 4.7 mmHg MV Mean 2.6 mmHg MV Area cm COMMENTS: Chief Business Development Officer: Amy [facility] Kindergarten Prep Teacher: 3 Dr. Morton TAPE# PACS Pericardial Effusion N DATE OF SERVICE: Adequate 2D, color flow imaging, spectral Doppler, and M-Mode No LVH. LV internal dimension is normal. Wall motion is normal. EF is greater than or equal to 55%. Aortic valve is tricuspid. No evidence of stenosis by Doppler interrogation. Left atrium is normal. Mitral valve shows no prolapse. Trace MR. Right-sided chambers are grossly normal. Trace TR. TRANSINT:[id number] Voice Confirmation ID: [id number] DOCUMENT ID: [id number] ECHOCARDIOGRAM REPORT [id number] CARLOS ALBERTO MOORE JESSICA MARR MD at 1503 CC: [id number] DICTATION DATE: 01/06/20822 SUPERVISOR ASSEMBLY AND PACKING: 01/06/20 1229 ADM IN [place] [id number] [place] [id number]
[2020-01-06] MEDS ORDERED: LEVOFLOXACIN500 MG PO (16:01)
--- NOTE | 2020-01-06 16:21 | MORECARE ---
CASE MANAGEMENT DISCHARGE SUMMARY PATIENT: CARLOS ALBERTO MOORE UNIT: [id number] ADM DATE: 01/03/20 AGE: 69 : 50 SEX: F ROOM/BED: D.2109 AUTHOR: DENISA LUA PHYSICIAN: REFERRING PHYSICIAN: JUNIE SOLOMON MD DATE OF SERVICE: 01/06/20 Discharge Plan Patient Name: CARLOS ALBERTO MOORE Facility: [facility]:[place] : 1950 Planned Disposition: Home Anticipated Discharge Date: Discharge Date: Expected LOS: Initial Reviewer: [email or web address] Initial Review Date: 01/06/2020 Generated: 01/06/20 5:20 pm Patient Name: CARLOS ALBERTO MOORE Page 65070 at 1621 All edits/amendments must be made on the electronic document DICTATION DATE: 01/06/201619 TRAFFIC MAINTENANCE OFFICER: NIELS 01/06/20 1620 RPT#: [id number] DC DATE: STATUS: ADM IN [facility] [address] [place] [address] END OF REPORT
--- NOTE | 2020-01-06 16:28 | MORECARE ---
CASE MANAGEMENT DISCHARGE SUMMARY PATIENT: CARLOS ALBERTO MOORE UNIT: [id number] ADM DATE: 01/03/20 AGE: 69 : 50 SEX: F ROOM/BED: D.2101 AUTHOR: CHANELL,DOC PHYSICIAN: REFERRING PHYSICIAN: JUNIE SOLOMON MD DATE OF SERVICE: 01/06/20 Discharge Plan Patient Name: CARLOS ALBERTO MOORE Facility: [facility]:[place] : 1950 Planned Disposition: Home Anticipated Discharge Date: Discharge Date: Expected LOS: Initial Reviewer: [email or web address] Initial Review Date: 01/06/2020 Generated: 01/06/20 5:28 pm Comments DCP- Discharge Planning Updated by [email or web address]: Ryann Grant on 01/06/20 3:[address] Patient Name: CARLOS ALBERTO MOORE Admission Status: ER Accout number: [id number] Admission Date: 01-03-2020 : 1950 Admission Diagnosis:UNSPECIFIED ABDOMINAL PAIN Attending: JUNIE SOLOMON Current LOS: 3 Anticipated DC Date: Planned Disposition: Home Primary Insurance: [employer] Discharge Planning Comments: CM met with patient to complete initial dc planning assessment. CM educated patient on the CM role and verbal consent given by patient to complete assessment. Patient lives at home with 2 adult grand children. At discharge patient plans to return and feels this is a safe discharge. CM discussed availability of home health, rehab services, and medical equipment. Patient denied known discharge needs at this time. I explained IMM over the phone because of isolation precautions and given with DC paperwork. CM will continue to follow and will assist as needed with dc plans/needs. Bone Glue Maker: Ryann Grant DCPIA - Discharge Planning Initial Assessment Updated by [email or web address]: Ryann Grant on 01/06/20 4:22 pm * Is the patient Alert and Oriented? Yes * How many steps to enter\exit or inside your home? Ramp/0 * PCP Dr. Alex Bettencourt * Pharmacy [facility] on [address] * Preadmission Environment Home with Family * ADLs Independent * Equipment Bedside Commode Cane Glucometer Nebulizer Tub Bench Walker * List name and contact numbers for known caregivers / representatives who currently or will assist patient after discharge: Rebeka Garcia - sister - [phone] Carlo dobbs - [phone] * Verbal permission to speak to the caregivers and representatives has been obtained from the patient. Yes * Community resources currently utilized None * Additional services required to return to the preadmission environment? No * Can the patient safely return to the preadmission environment? Yes * Has this patient been hospitalized within the prior 30 days at any hospital? No Coverage Notice Reviewer: [email or web address] Ansley Grant Notice Issued Date-Time: 01/06/2020 16:24 Notice Type: IM Discharge Notice Notice Delivered To: Patient Relationship to Patient: Self Scrap Stripper Hand Name: Delivery Method: HAND - Hand Delivered Dora Days: Prior Verbal Notification: Recipient Understood Notice: Yes Recipient Signature: Med Rec Note Co-signed by Attending: Coverage Notice Comment: Patient unable to sign due to isolation precautions, however she was given the original and copy placed in MR Last DP export: 01/06/20 3:21 p Patient Name: CARLOS ALBERTO MOORE Page [phone] at 1628 All edits/amendments must be made on the electronic document DICTATION DATE: 01/06/201627 STEMMER MACHINE: NIELS 01/06/208 RPT#: [id number] DC DATE: STATUS: ADM IN [facility] [address] [place] [address] END OF REPORT
--- NOTE | 2020-01-06 16:47 | NUR ---
TELEMTRY DC'D. RIGHT FA 20G IV DC'D WITH CATH INTACT. DISCHARGE INSTRUCTIONS GIVEN TO PT AND TEACHING DONE. PT HAS NO FURTHER QUESTIONS. CHART COPY SIGNED. PT CALLED HER RIDE.
--- NOTE | 2020-01-06 17:23 | NUR ---
PT TAKEN OUT THROUGH ER ENTRANCE WITH ALL BELONGINGS VIA WC AND LEFT WITH FAMILY MEMBER IN HIS PERSONAL VEHICLE.
--- NOTE | 2020-01-07 08:05 | MORECARE ---
CASE MANAGEMENT DISCHARGE SUMMARY PATIENT: CARLOS ALBERTO MOORE UNIT: [id number] ADM DATE: 01/03/20 AGE: 69 : 50 SEX: F ROOM/BED: D.2107 AUTHOR: CHANELL,DOC PHYSICIAN: REFERRING PHYSICIAN: JUNIE SOLOMON MD DATE OF SERVICE: 01/07/20 Discharge Plan Patient Name: CARLOS ALBERTO MOORE Facility: [facility]:[place] : 1950 Planned Disposition: Home Anticipated Discharge Date: Discharge Date: 01/06/2020 Expected LOS: Initial Reviewer: [id number] Initial Review Date: 01/06/2020 Generated: 01/07/20 9:04 am Comments DCP- Discharge Planning Updated by [email or web address]: Ryann Grant on 01/06/20 3:[address] Patient Name: CARLOS ALBERTO MOORE Admission Status: ER Accout number: [id number] Admission Date: 01-03-2020 : 1950 Admission Diagnosis:UNSPECIFIED ABDOMINAL PAIN Attending: JUNIE SOLOMON Current LOS: 3 Anticipated DC Date: Planned Disposition: Home Primary Insurance: [employer] Discharge Planning Comments: CM met with patient to complete initial dc planning assessment. CM educated patient on the CM role and verbal consent given by patient to complete assessment. Patient lives at home with 2 adult grand children. At discharge patient plans to return and feels this is a safe discharge. CM discussed availability of home health, rehab services, and medical equipment. Patient denied known discharge needs at this time. I explained IMM over the phone because of isolation precautions and given with DC paperwork. CM will continue to follow and will assist as needed with dc plans/needs. Statuary Painter: Ryann Grant DCPIA - Discharge Planning Initial Assessment Updated by [email or web address]: Ryann Grant on 01/06/20 4:22 pm * Is the patient Alert and Oriented? Yes * How many steps to enter\exit or inside your home? Ramp/0 * PCP Dr. Alex Bettencourt * Pharmacy [facility] on [address] * Preadmission Environment Home with Family * ADLs Independent * Equipment Bedside Commode Cane Glucometer Nebulizer Tub Bench Walker * List name and contact numbers for known caregivers / representatives who currently or will assist patient after discharge: Rebeka Garcia - sister - [phone] Carlo Forde - rinku - [phone] * Verbal permission to speak to the caregivers and representatives has been obtained from the patient. Yes * Community resources currently utilized None * Additional services required to return to the preadmission environment? No * Can the patient safely return to the preadmission environment? Yes * Has this patient been hospitalized within the prior 30 days at any hospital? No Coverage Notice Reviewer: [email or web address] Ansley Grant Notice Issued Date-Time: 01/06/2020 16:24 Notice Type: IM Discharge Notice Notice Delivered To: Patient Relationship to Patient: Self Bar Roller Name: Delivery Method: HAND - Hand Delivered Dora Days: Prior Verbal Notification: Recipient Understood Notice: Yes Recipient Signature: Puneet Rec Note Co-signed by Attending: Coverage Notice Comment: Patient unable to sign due to isolation precautions, however she was given the original and copy placed in MR Last DP export: 01/06/20 3:28 p Patient Name: CARLOS ALBERTO MOORE Page [id number] at 0805 All edits/amendments must be made on the electronic document DICTATION DATE: 01/07/20804 TALENT DEVELOPMENT DIRECTOR: NIELS 01/07/20804 RPT#: [id number] DC DATE:01/06/20 STATUS: DIS IN [facility] [address] [place] [address] END OF REPORT
== END 2020-01-06 17:24 | disposition home or self-care (01) | DRG 977 ==
LOC: D.ER 20:00 → D.M2 23:01
PROVIDERS: Emergency Medicine; Family Medicine; ADMIT Emergency Medicine; ATTEND Emergency Medicine
DX: B20 Human immunodeficiency virus [HIV] disease (principal); N39.0 Urinary tract infection, site not specified; N17.9 Acute kidney failure, unspecified; N10 Acute pyelonephritis; K74.60 Unspecified cirrhosis of liver; B19.20 Unspecified viral hepatitis C without hepatic coma; E11.40 Type 2 diabetes mellitus with diabetic neuropathy, unspecified; D64.9 Anemia, unspecified; E11.65 Type 2 diabetes mellitus with hyperglycemia; F32.9 Major depressive disorder, single episode, unspecified; F12.10 Cannabis abuse, uncomplicated; B96.20 Unspecified Escherichia coli [E. coli] as the cause of diseases classified elsewhere; Z86.73 Personal history of transient ischemic attack (TIA), and cerebral infarction without residual deficits